=== PATIENT | female | born 1965 | race Caucasian/White ===

== ENCOUNTER → 2017-01-16 | Outpatient (CLI) | payer OTHER | END | disposition home or self-care (01) | LOC: C.PATHSPEC 11:20 | PROVIDERS: ATTEND Dentist Oral and Maxillofacial Surgery | DX: D10.39 Benign neoplasm of other parts of mouth (principal) ==

== ENCOUNTER 2025-03-03 06:35 | Inpatient (IN) ==
--- NOTE | 2025-02-05 11:40 | PAT Medication Instructions ---
Medication Instructions Date of Service February 05, 2025 Home Medications atorvastatin 20 mg tablet 20 mg PO HS cyclobenzaprine 10 mg tablet 10 mg PO TID PRN Muscle Spasm fenofibrate micronized 134 mg capsule 134 mg PO QAM hydrochlorothiazide 25 mg tablet 25 mg PO QAM lisinopril 40 mg tablet 40 mg PO QAM meclizine 25 mg tablet 25 mg PO DAILY PRN Dizziness metformin 500 mg tablet 500 mg PO BID metoprolol succinate 50 mg tablet,extended release 24 hr 50 mg PO HS metronidazole 1 % topical gel (Metrogel) 1 applic topical DAILY naproxen 500 mg tablet 500 mg PO BID PRN Pain cetirizine 10 mg tablet (Zyrtec) 10 mg PO DAILY cholecalciferol (vitamin D3) 125 mcg (5,000 unit) tablet (Vitamin D3) 125 mcg PO DAILY hydralazine 50 mg tablet 50 mg PO BID magnesium 100 mg tablet 100 mg PO QAM Continue as directed meclizine 25 mg tablet 25 mg PO DAILY PRN Dizziness (if needed) ASK your surgeon for instructions naproxen 500 mg tablet 500 mg PO BID PRN Pain STOP taking 48 hours before surgery fenofibrate micronized 134 mg capsule 134 mg PO QAM STOP taking 24 hours before surgery metronidazole 1 % topical gel (Metrogel) 1 applic topical DAILY DO NOT take the morning of surgery hydrochlorothiazide 25 mg tablet 25 mg PO QAM lisinopril 40 mg tablet 40 mg PO QAM cetirizine 10 mg tablet (Zyrtec) 10 mg PO DAILY cholecalciferol (vitamin D3) 125 mcg (5,000 unit) tablet (Vitamin D3) 125 mcg PO DAILY metformin 500 mg tablet 500 mg PO BID magnesium 100 mg tablet 100 mg PO QAM Take morning of surgery With a small sip of water, OTHERWISE NOTHING TO EAT OR DRINK AFTER MIDNIGHT: cyclobenzaprine 10 mg tablet 10 mg PO TID PRN Muscle Spasm (if needed) hydralazine 50 mg tablet 50 mg PO BID Take evening before surgery atorvastatin 20 mg tablet 20 mg PO HS cyclobenzaprine 10 mg tablet 10 mg PO TID PRN Muscle Spasm (if needed) metformin 500 mg tablet 500 mg PO BID metoprolol succinate 50 mg tablet,extended release 24 hr 50 mg PO HS hydralazine 50 mg tablet 50 mg PO BID Other Notes If you have any questions please call us at [phone] or [phone] or [phone] or [phone]
--- NOTE | 2025-02-10 12:51 | Anesthesiology Consultation ---
Date of Service February 10, 2025 Assessment & Plan (1) Encounter for pre-operative examination: - surgeon ordered medical clearance 02/17/25 [facility]: "...lumbar decompression fusion...preoperative workup including blood work demonstrating an A1c of 6.9% Type 2 diabetes well controlled...RCRI: 0 points, class 1 risk. Preoperative blood work reviewed, stable. Preop EKG demonstrating NSR. Endorses > 4 METs...medically optimized to proceed with the planned procedure..." - check BSG am DOS. Chart Review Chart Review: Acceptable Risk for Surgery and Patient seen in Pre Admission Testing Teaching & Discussion Pre-Anesthesia Teaching/Discussion Notes: Instructed NPO after midnight before surgery, except medications with 15 cc of water. Medication instructions provided according to the PAT guidelines. History Surgery Operation Date: 03/03/25 07:45 Proposed Procedures p L2-L4 Decompression and Fusion - David Gibbs, Height/Weight Height: 5 ft 2 in Weight: 113.8 kg Allergies Allergy/AdvReac Type Severity Reaction Status Date / Time latex Allergy Intermediate red, Verified 02/04/25 08:40 burning rash oxycodone [From Percocet] Allergy Intermediate severe Verified 02/04/25 08:40 vomiting Sulfa (Sulfonamide Allergy Intermediate rash/vomiti Verified 02/04/25 08:40 Antibiotics) ng montelukast AdvReac Severe "changed Verified 02/04/25 08:40 my personality" duloxetine AdvReac Unknown Gastrointestinal Verified 02/04/25 08:40 Upset lilacs Allergy Severe Anaphylaxis Uncoded 02/04/25 08:40 Medications Home Medications Medication Instructions Recorded Confirmed Last Taken atorvastatin 20 mg tablet 20 mg PO HS 04/12/20 02/04/25 04/19/20 21:00 cyclobenzaprine 10 mg tablet 10 mg PO TID PRN Muscle Spasm 04/12/20 02/04/25 04/13/20 12:00 fenofibrate micronized 134 mg 134 mg PO QAM 04/12/20 02/04/25 04/19/20 08:00 capsule hydrochlorothiazide 25 mg tablet 25 mg PO QAM 04/12/20 02/04/25 04/19/20 08:00 lisinopril 40 mg tablet 40 mg PO QAM 12/01/20 09/25/25 12/08/20 08:00 meclizine 25 mg tablet 25 mg PO DAILY PRN Dizziness 04/12/20 02/04/25 Unknown metformin 500 mg tablet 500 mg PO BID 04/12/20 02/04/25 04/19/20 21:00 metoprolol succinate 50 mg 50 mg PO HS 04/12/20 02/04/25 04/19/20 21:00 tablet,extended release 24 hr metronidazole 1 % topical gel 1 applic topical DAILY 04/12/20 02/04/25 04/18/20 12:00 (Metrogel) naproxen 500 mg tablet 500 mg PO BID PRN Pain 04/12/20 02/04/25 04/17/20 21:00 cetirizine 10 mg tablet (Zyrtec) 10 mg PO DAILY 02/04/25 02/04/25 Unknown cholecalciferol (vitamin D3) 125 125 mcg PO DAILY 02/04/25 02/04/25 Unknown mcg (5,000 unit) tablet (Vitamin D3) hydralazine 50 mg tablet 50 mg PO BID 02/04/25 02/04/25 Unknown magnesium 100 mg tablet 100 mg PO QAM 02/04/25 02/04/25 Unknown Additional Notes: Patient was instructed to follow surgeon's instructions regarding Vitamin D supplementation. Past Medical History Medical History (Updated 02/10/25 @ 13:10 by Lubna Smith PA-C) Bruxism wears a mouth guard at night Chronic back pain Diabetes mellitus, type 2 History of anemia denies h/o blood transfusion History of COVID-19 spring 2024 - resolved History of diverticulosis History of gastric ulcer teenage years Hyperlipidemia Hypertension Internal hemorrhoids Morbid obesity with BMI of 45.0-49.9, adult Nausea and vomiting after administration of anesthetic agent Rosacea Seasonal allergies Temporomandibular joint disorder denies locking or clicking Patient denies h/o stroke, seizures, heart attack, heart failure, or blood clots/DVTs. Exercise / Class Metabolic Activity III < 4 Walking/Shop/Light housework (denies chest discomfort or shortness of breath with usual activities, avoiding stairs due to back pain) Past Family History Family History Mother Family history of reaction to anesthesia difficulty waking Family hx colonic polyps Sister Family history of reaction to anesthesia "would just be really out there for hours after procedures" Grandmother (Maternal) Family history of diabetes mellitus Uncle Family history of diabetes mellitus Uncle Family history of diabetes mellitus Family/Other Family history of diabetes mellitus cousin Past Surgical History Surgical History (Updated 02/10/25 @ 13:13 by Lubna Smith PA-C) History of cholecystectomy History of dilatation and curettage History of endometrial ablation History of esophagogastroduodenoscopy (EGD) History of hemorrhoidectomy with fistulectomy History of surgery skin lesion removed right hand-precancerous cells History of tonsillectomy and adenoidectomy History of wisdom tooth extraction Hx of LASIK Status post epidural steroid injection Past Anesthesia History No Hx of Anesthesia Complications and Other (mother and sister slow to wake) History of PONV History of PONV and Hx of Motion Sickness Social History Smoking Status: Never smoker Do You Dip or Chew Tobacco: No Hx Alcohol Use: No Hx Substance Use: No substance use type: does not use Review of Systems Snoring, denies witnessed apneas. Patient denies chest pain, shortness of breath, dyspnea on exertion, fever, chills, cough, wheezing, or palpitations. Physical Exam Vital Signs Vitals BP 151/83 P 75 TEMP 98.4 SP02 97% on RA RESP 18 Physical Patient resting comfortably in chair in no acute distress, alert and oriented, responding appropriately throughout visit Full cervical extension range of motion without pain TMD < 3 finger breadths Mallampati Score 3 Dentition: several caps/crowns, denies chipped or loose teeth, implants or bridges Lungs: normal respiratory effort. Good air movement, clear throughout to auscultation, no adventitious breath sounds Cardiac: regular rate and rhythm, no murmurs noted Carotid arteries: negative bruit bilat Lab Results Anesthesia Preop Results Results Anesthesia Widget: WBC 6.92 K/ul (4.8-10.8) 02/10/25 Hgb 11.9 g/dl (12.0-16.0) L 02/10/25 Hct 38.5 % (37.0-47.0) 02/10/25 Plt 321 K/uL (130-400) 02/10/25 Na 141 mmol/L (136-145) 02/10/25 K 4.7 mmol/L (3.5-5.1) 02/10/25 Cl 103 mmol/L (98-107) 02/10/25 CO2 30 mmol/L (21-32) 02/10/25 BUN 26 mg/dl (6-23) H 02/10/25 Creat 1.06 mg/dl (0.6-1.2) 02/10/25 Glucose Level 143 mg/dl (70-99(Fasting)) H 02/10/25 PT 9.9 Seconds (9.0-12.0) 02/10/25 PTT 27 Seconds (21-31) 02/10/25 INR 0.9 (0.9-1.1) 02/10/25 HA1c 6.9 % (4.5-5.6) H 02/10/25 Urine Color Yellow 02/10/25 Urine Appearance Clear (Clear) 02/10/25 Urine pH 6.5 (4.5-7.5) 02/10/25 Urine Specific [place] 1.011 (1.000-1.030) 02/10/25 Urine Protein Negative (Negative) 02/10/25 Urine Glucose (UA) Negative (Negative) 02/10/25 Urine Ketones Negative (Negative) 02/10/25 Urine Blood Negative (Negative) 02/10/25 Urine Nitrite Negative (Negative) 02/10/25 Urine Bilirubin Negative (Negative) 02/10/25 Urine Urobilinogen Negative (Negative) 02/10/25 Urine Leukocyte Esterase Negative (Negative) 02/10/25 Blood Type O Negative 02/10/25 Antibody Screen NEGATIVE 02/10/25 Testing Electrocardiogram Date: 02/10/25 NSR, rate 74 bpm Chest X-Ray Date: 02/10/25 Heart size and pulmonary vasculature are normal. No consolidation or pleural effusion. IMPRESSION: No acute findings. Stress Test Date: 11/09/21 Negative for inducible ischemia No significant valvular disease MPHR 85% Grade I diastolic dysfunction
[2025-03-03] MEDS: VANCOMYCIN HCL 1,750 MG in SODIUM CHLORIDE 0.9% 500 ML IV SCH (06:50)
[2025-03-03] MEDS: LR 15ML/HR IV SCH (06:50)
[2025-03-03] MEDS: LR 60ML/HR IV SCH (07:00)
[2025-03-03] MEDS: GABAPENTIN 600 MG DOSE PO SCH (07:01)
[2025-03-03] MEDS: ACETAMINOPHEN 500 MG TAB PO SCH (07:01)
[2025-03-03] MEDS: CeleBREX 200 MG CAP PO SCH (07:01)
[2025-03-03] MEDS ORDERED: HYDROmorphone INJ 2 MG/ML SYR/VIAL ONE (08:32)
[2025-03-03] MEDS ORDERED: KETAMINE HCL 10MG/ML SYR ONE (08:32)
[2025-03-03] MEDS ORDERED: ONDANSETRON INJ 2 MG/ML 2 ML VIAL ONE ×2 (08:32→11:10)
[2025-03-03] MEDS ORDERED: PROPOFOL IV EMULSION 10 MG/ML 20 ML VIAL IV ONE (08:32)
[2025-03-03] MEDS ORDERED: DEXAMETHASONE SOD INJ 4 MG/ML VIAL ONE (08:32)
[2025-03-03] MEDS ORDERED: ROCURONIUM BROMIDE 10 MG/ML 5 ML VIAL IV ONE (08:32)
[2025-03-03] MEDS ORDERED: MIDAZOLAM HCL 1 MG/ML 2ML VIAL ONE (08:32)
[2025-03-03] MEDS: SCOPOLAMINE 1 MG/72 HR TDSY PATCH TD ONE ×2 (08:45→08:46)
[2025-03-03] MEDS ORDERED: HYDROmorphone INJ 1 MG/ML SYRINGE IV PRN ×2 (08:50→13:13)
[2025-03-03] MEDS ORDERED: ONDANSETRON INJ 2 MG/ML 2 ML VIAL IV PRN ×2 (08:50→13:13)
[2025-03-03] MEDS ORDERED: ATROPINE SULFATE 0.1 MG/ML 10ML SYR IV PRN (08:50)
--- NOTE | 2025-03-03 09:22 | History & Physical Bridge Note ---
Date of Service March 03, 2025 History & Physical Bridge Note I have examined the patient, reviewed the History & Physical and in the interval since the performance of the History & Physical I have noted the following changes of clinical significance: no changes noted
--- NOTE | 2025-03-03 09:23 | History & Physical Report ---
Date of Service March 03, 2025 Assessment & Plan (1) Multilevel lumbosacral spondylosis with radiculopathy: Plan: L2-L4 decompression and fusion History of Present Illness Chief Complaint: Chronic back and leg pain Primary Care Provider: Kareen San MD This is a 59-year-old female presents with chronic back and leg pain after failing course of nonoperative care is here for surgical intervention. Allergies Allergy/AdvReac Type Severity Reaction Status Date / Time latex Allergy Intermediate red, Verified 03/03/25 07:03 burning rash oxycodone [From Percocet] Allergy Intermediate severe Verified 03/03/25 07:03 vomiting Sulfa (Sulfonamide Allergy Intermediate rash/vomiti Verified 03/03/25 07:03 Antibiotics) ng montelukast AdvReac Severe "changed Verified 03/03/25 07:03 my personality" duloxetine AdvReac Unknown Gastrointestinal Verified 03/03/25 07:03 Upset lilacs Allergy Severe Anaphylaxis Uncoded 03/03/25 07:03 Home Medications Medication Instructions Recorded Confirmed Type atorvastatin 20 mg tablet 20 mg PO HS 04/12/20 03/03/25 History cyclobenzaprine 10 mg tablet 10 mg PO TID PRN Muscle Spasm 04/12/20 03/03/25 History fenofibrate micronized 134 mg 134 mg PO QAM 04/12/20 03/03/25 History capsule hydrochlorothiazide 25 mg tablet 25 mg PO QAM 04/12/20 03/03/25 History lisinopril 40 mg tablet 40 mg PO QAM 04/12/20 03/03/25 History meclizine 25 mg tablet 25 mg PO DAILY PRN Dizziness 04/12/20 03/03/25 History metformin 500 mg tablet 500 mg PO BID 04/12/20 03/03/25 History metoprolol succinate 50 mg 50 mg PO HS 04/12/20 03/03/25 History tablet,extended release 24 hr metronidazole 1 % topical gel 1 applic topical DAILY 04/12/20 03/03/25 History (Metrogel) naproxen 500 mg tablet 500 mg PO BID PRN Pain 04/12/20 03/03/25 History cetirizine 10 mg tablet (Zyrtec) 10 mg PO DAILY 02/04/25 03/03/25 History cholecalciferol (vitamin D3) 125 125 mcg PO DAILY 02/04/25 03/03/25 History mcg (5,000 unit) tablet (Vitamin D3) hydralazine 50 mg tablet 50 mg PO BID 02/04/25 03/03/25 History magnesium 100 mg tablet 100 mg PO QAM 02/04/25 03/03/25 History Past Med/Surg History Problem List (Updated 03/03/25 @ 09:23 by David Gibbs DO) Multilevel lumbosacral spondylosis with radiculopathy Dysphagia Encounter for pre-operative examination Medical History (Updated 03/03/25 @ 09:23 by David Gibbs DO) Internal hemorrhoids Rosacea History of diverticulosis Seasonal allergies History of COVID-19 spring 2024 - resolved Morbid obesity with BMI of 45.0-49.9, adult Nausea and vomiting after administration of anesthetic agent Chronic back pain History of gastric ulcer teenage years Diabetes mellitus, type 2 History of anemia denies h/o blood transfusion Bruxism wears a mouth guard at night Temporomandibular joint disorder denies locking or clicking Hyperlipidemia Hypertension Surgical History History of surgery skin lesion removed right hand-precancerous cells History of hemorrhoidectomy with fistulectomy History of esophagogastroduodenoscopy (EGD) History of endometrial ablation History of dilatation and curettage Status post epidural steroid injection History of cholecystectomy History of wisdom tooth extraction History of tonsillectomy and adenoidectomy Hx of LASIK Family History Mother Family history of reaction to anesthesia difficulty waking Family hx colonic polyps Sister Family history of reaction to anesthesia "would just be really out there for hours after procedures" Grandmother (Maternal) Family history of diabetes mellitus Uncle Family history of diabetes mellitus Uncle Family history of diabetes mellitus Family/Other Family history of diabetes mellitus cousin Social History Smoking Status: Never smoker Second Hand Exposure: Yes (parents/both sisters smoked); Do You Dip or Chew Tobacco: No; Tobacco Cessation Education Requested by Patient: No Hx Alcohol Use: No Hx Substance Use: No Preferred Language: Romansh Communication Ability: Effective Probation Manager Required: No Beliefs That Will Affect Care: None Current Living Situation: Spouse Other Information That Helps Us Care for You: No Feels Safe at Home: Yes Safety Concerns: Feels Safe At This Time Assistive Devices: None Physical Exam Physical Exam: Patient is alert and oriented heart regular rhythm Lungs clear Results & Data Results & Data Vital Signs (Past 12 Hours) Vital Signs Temp Pulse Resp BP Pulse Ox O2 Del Method 03/03/25 06:54 36.7 C 74 20 181/93 H 97 Room Air
[2025-03-03] MEDS: BUPIVACAINE/EPINEPHRINE 0.25% 1:200,000 30 ML VIAL ONE (10:40)
[2025-03-03] MEDS: ceFAZolin 330 MG/ML 1 GM VIAL ONE (10:40)
[2025-03-03] MEDS ORDERED: SUGAMMADEX SODIUM 200 MG/2 ML VIAL IV ONE (11:10)
[2025-03-03] MEDS: FLOSEAL HEMOSTATIC MATRIX 10ML TOP ONE (11:24)
--- NOTE | 2025-03-03 11:42 | Operative Report ---
Post Operative Report Pre & Post Diagnosis Operation Date: 03/03/25 09:35 Pre-Op Diagnosis: #1 lumbar spondylosis with radiculopathy #2 lumbar spinal stenosis #3 morbid obesity Post-Op Diagnosis: Same I identified the patient and participated in the time-out.: Yes Procedure Operation Date: 03/03/25 09:35 Actual Procedures #1 lumbar decompression with bilateral medial facetectomies and foraminotomies L2-L3 L3-L4. #2 posterior spinal fusion L2-L3 L3-L4 #3 placed to posterior instrumentation L2-L4 using Buenrostro. #4 interbody fusion L2-L3 L3-L4 #5 christina cement of Spira 13 x 26 mm at L2-L3 and 12 x 26 mm at L3-L4. #6 placement locally harvested morselized autograft and posterior gutters. #7 placement of Proteus combined with Koros bone graft in the posterior lateral gutters and os design interbody space. #8 application of versa wrap of the exposed dura. Surgeon David Gibbs, DO [place] [employer] Yudith Haro Estimated Blood Loss 200 Findings See Below The patient is 5 foot 2 weighing over 113 kg with a BMI in excess of 45. The patient's body habitus did create significant technical difficulty with positioning exposure procedure itself. This did require deep retractors and longer instruments in order to perform this procedure. This had at least 40% increased operative time. I am recommending a modifier 22. Specimens None Indications This is a 59-year-old female presents by much diagnosis after failing course of nonoperative care is here for surgical invention. Description of Procedure Patient was met with identified informed consent obtained. Patient was then taken to the operative suite underwent patient placed in a prone position on the Jeffry table atop the Jeison frame. All bony prominences well-padded eyes inspected to ensure no external pressure placed upon them. This point lumbar spine was prepped and draped in normal sterile fashion. Sharp dissection with the assistance of Bovie cautery from down to and exposing the lamina transverse processes of L2-L3-L4 bilaterally. From a [place] 5 fashion complete laminectomy of L3 and L2 was performed including bilateral medial facetectomies and foraminotomies addressing severe neural compression. Pedicle screws in place at L2-L3-L4 bilaterally with assistance of fluoroscopy and the appropriately sized cristian placed. By way of transforaminal approach on the left complete discectomy of L3-L4 was performed endplates corrected to subcortical bleeding bone and a 12 x 26 mm Spira cage tapped into position. Then proceeded to L2-L3 and again by way of a transforaminal approach on the left a complete discectomy was performed. Endplates guided to subcortical bleeding bone and a 13 x 26 mm Spira cage tapped into position. Please note all cages were packed with os design bone graft. The rods were then compressed locked in the final position bilaterally. The transverse processes of L2-L3-L4 burred to subcortical bleeding bone. Proteus combined with Koros bone graft and local autograft placed in posterolateral gutters. First wrap placed over the exposed dura. 15 round TIFFANIE drain inserted. The incision was then closed with 1 Vicryl fascia 2-0 Vicryl subcutaneously and 4 Monocryl for final skin closure. Steri- Strips sterile dressing placed. Patient waken taken to PACU stable condition. Please note Yudith Haro was present at the entire procedure and all the patient positioning complex portion of the surgery and final skin closure. I attest to the content of the Intraoperative Record and any orders documented therein. Any exceptions are noted below.
--- NOTE | 2025-03-03 12:00 | Fluoroscopy Report ---
INTRAOPERATIVE RADIOGRAPHS CLINICAL HISTORY: Lumbar spinal fusion surgery. Fluoro time: 15 seconds Ka,r: 15.74 mGy FINDINGS: 2 spot fluoroscopic views of the lumbar spine are presented. There has been discectomy at L 2-L3 and L3-L4 with laminectomy and posterior fusion at L2-L4. Interpedicular screws are present at a ll levels. The orthopedic hardware appears intact. IMPRESSION: Intraoperative images from lumbar spinal fusion surgery as above. Electronically signed by: Eugenio Fenton M.D. 03/03/2025 11:57 AM
--- NOTE | 2025-03-03 12:50 | Anesthesiology Progress Note ---
Date of Service March 03, 2025 Anesthesia Post Procedure Vital Signs Vital Signs: Temp Pulse Pulse Resp BP Pulse Ox O2 Del Method 03/03/25 12:45 60 14 139/68 96 Nasal Cannula 03/03/25 12:35 64 12 175/81 H 99 Oxymask 03/03/25 12:25 66 14 165/77 H 93 Oxymask 03/03/25 12:15 67 12 159/75 H 95 Oxymask 03/03/25 12:04 36.2 C L 73 12 148/74 H 95 Oxymask 03/03/25 06:54 36.7 C 74 20 181/93 H 97 Room Air O2 Flow Rate 03/03/25 12:45 3 03/03/25 12:35 4 03/03/25 12:25 4 03/03/25 12:15 7 03/03/25 12:04 15 03/03/25 06:54 Pain Intensity Back: Pain Intensity: 4 Transfer of Care Handoff Completed per policy Notes Mental Status: alert / awake / arousable Patient Amnestic to Procedure: Yes Nausea / Vomiting: adequately controlled Pain: adequately controlled Airway Patency, RR, SpO2: stable & adequate BP & HR: stable & adequate Hydration State: stable & adequate Anesthetic Complications: no major complications apparent and Pt Satisfied with anesthetic care
[2025-03-03] MEDS ORDERED: diphenhydrAMINE Capsule 25 MG CAP PO PRN (13:13)
[2025-03-03] MEDS ORDERED: ACETAMINOPHEN 500 MG TAB PO PRN (13:13)
[2025-03-03] MEDS ORDERED: MECLIZINE HCL 25 MG TAB PO PRN (13:13)
[2025-03-03] MEDS ORDERED: SOD PHOSPHATE/SOD BIPHOSPHATE ENEMA 132 ML BTL PR PRN (13:13)
[2025-03-03] MEDS ORDERED: PHARMACY GLYCEMIC MGMT CONSULT PRN (13:13)
[2025-03-03] MEDS ORDERED: LORazepam Inj 0.5 MG in SYRINGE 0.25 ML IV PRN (13:13)
[2025-03-03] MEDS ORDERED: FAMOTIDINE 20 MG TAB PO PRN (13:13)
[2025-03-03] MEDS ORDERED: ALUMINUM/MAGNESIUM SUSP 30 ML UDC PO PRN (13:13)
[2025-03-03] MEDS ORDERED: NALOXONE HCL 0.4 MG/1 ML VIAL/CARP IV PRN (13:13)
[2025-03-03] MEDS ORDERED: MAGNESIUM HYDROXIDE SUSP 30 ML UDC PO PRN (13:13)
[2025-03-03] MEDS ORDERED: HYDROmorphone INJ 0.5 MG/0.5 ML SYR IV PRN (13:13)
[2025-03-03] MEDS ORDERED: DO NOT ADMINISTER PNEUMOCOCCAL VACCINE PRN (13:13)
[2025-03-03] MEDS ORDERED: CYCLOBENZAPRINE HCL 10 MG TAB PO PRN (13:13)
[2025-03-03] MEDS ORDERED: ACETAMINOPHEN 1,000 MG/100 ML VIAL IV PRN (13:13)
[2025-03-03] MEDS ORDERED: METOCLOPRAMIDE HCL INJ 5 MG/ML 2 ML VIAL IV PRN (13:13)
[2025-03-03] MEDS ORDERED: LORazepam 0.5 MG TAB PO PRN (13:13)
[2025-03-03] MEDS ORDERED: DO NOT ADMINISTER FLU VACCINE PRN (13:13)
[2025-03-03] MEDS: SODIUM CHLORIDE 0.9% 1,000 ML IV SCH (13:34)
[2025-03-03] MEDS: ONDANSETRON 4 MG OD TAB PO PRN (13:39)
--- NOTE | 2025-03-03 13:56 | Consultation ---
Date of Consultation March 03, 2025 Assessment & Plan (1) Multilevel lumbosacral spondylosis with radiculopathy: (2) S/P spinal surgery: Post op day# 0 S/P L2-L4 decompression and fusion by Dr Bernie BALLESTEROS#200ml Pain management per ortho Wound management per ortho PT/OT as appropriate DVT prophylaxis per ortho Incentive spirometry Monitor H&H for acute blood loss anemia; pre-op Hgb: 11.9 (3) Hypertension: Stable Hold lisinopril and HCTZ for now and reassess BP tomorrow Continue metoprolol succinate, hydralazine (4) Hyperlipidemia: Continue atorvastatin, fenofibrate (5) Diabetes mellitus, type 2: A1c: 6.9 on 02/10/25 Hold home metformin Basal bolus insulin per glycemic pharmacist, appreciate glycemic management DVT Prophylaxis SCDs Disposition per primary service Follows with Dr San at [facility] for routine care Pt was seen and care coordinated with Dr Munoz. See addendum Thank you for this consultation. We will follow the patient with you during their hospital stay. You can reach a member of the [facility] Hospitalist Team 03/12 via [facility] Supervising Physician Co-Signing Physician Notes Pt seen and examined by me, care coordinated w/ Alan Parker PA-C, pls refer to her note above for further detail. Patient is 59 yo F with HTN, HLD, DM II, morbid obesity, chronic back pain S/P L2-L4 decompression and fusion today by Dr. Gibbs. Postop reports nausea and had episode of emesis. Pt reports chronic "stomach issues" with nausea and takes Protonix. Has Castro cath in place. Denies fever/chills, diaphoresis, diarrhea, constipation, SWARTZ, dizziness, CP, SOB, palpitations, cough, sore throat, rhinorrhea, abdominal pain, weakness, extremity edema, rashes, urinary symptoms. Currently sitting up in bed resting, awakens easily. Nausea seems to be improving. Lungs CTAB, heart sounds regular. Abdomen soft, obese, nontender. Pt moves LEs. Cont. to closely monitor, will get H&H tmrw AM. MD Alexander History of Present Illness Requesting Physician: Dr Gibbs Reason for Consultation: post op medical management Attending Physician: David Gibbs DO History of Present Illness Patient is 59 year old female with PMH HTN, HLD, DM II, morbid obesity, chronic back pain S/P L2-L4 decompression and fusion today by Dr. Gibbs. Postop reports nausea and had episode emesis. Pt reports chronic "stomach issues" with nausea and takes Protonix for awhile and helps then stops and symptoms return. Currently been taking Protonix daily. Has Castro cath in place. Denies f ever/chills, diaphoresis, diarrhea, constipation, SWARTZ, dizziness, CP, SOB, palpitations, cough, sore throat, rhinorrhea, abdominal pain, weakness, extremity edema, rashes, urinary symptoms. Allergies Allergy/AdvReac Type Severity Reaction Status Date / Time latex Allergy Intermediate red, Verified 03/03/25 07:03 burning rash oxycodone [From Percocet] Allergy Intermediate severe Verified 03/03/25 07:03 vomiting Sulfa (Sulfonamide Allergy Intermediate rash/vomiti Verified 03/03/25 07:03 Antibiotics) ng montelukast AdvReac Severe "changed Verified 03/03/25 07:03 my personality" duloxetine AdvReac Unknown Gastrointestinal Verified 03/03/25 07:03 Upset lilacs Allergy Severe Anaphylaxis Uncoded 03/03/25 07:03 Home Medications Medication Instructions Recorded Confirmed Type atorvastatin 20 mg tablet 20 mg PO HS 04/12/20 03/03/25 History cyclobenzaprine 10 mg tablet 10 mg PO TID PRN Muscle Spasm 04/12/20 03/03/25 History fenofibrate micronized 134 mg 134 mg PO QAM 04/12/20 03/03/25 History capsule hydrochlorothiazide 25 mg tablet 25 mg PO QAM 04/12/20 03/03/25 History lisinopril 40 mg tablet 40 mg PO QAM 04/12/20 03/03/25 History meclizine 25 mg tablet 25 mg PO DAILY PRN Dizziness 04/12/20 03/03/25 History metoprolol succinate 50 mg 50 mg PO HS 04/12/20 03/03/25 History tablet,extended release 24 hr metronidazole 1 % topical gel 1 applic topical DAILY 04/12/20 03/03/25 History (Metrogel) naproxen 500 mg tablet 500 mg PO BID PRN Pain 04/12/20 03/03/25 History cetirizine 10 mg tablet (Zyrtec) 10 mg PO DAILY 02/04/25 03/03/25 History cholecalciferol (vitamin D3) 125 125 mcg PO DAILY 02/04/25 03/03/25 History mcg (5,000 unit) tablet (Vitamin D3) hydralazine 50 mg tablet 50 mg PO BID 02/04/25 03/03/25 History magnesium 100 mg tablet 100 mg PO QAM 02/04/25 03/03/25 History hydrocodone 5 mg-acetaminophen 325 1 tab PO Q6H PRN pain #30 tabs 03/03/25 Rx mg tablet metformin 1,000 mg tablet 1,000 mg PO BID 03/03/25 03/03/25 History pantoprazole 20 mg tablet,delayed 20 mg PO DAILY 03/03/25 03/03/25 History release tramadol 50 mg tablet 50 mg PO Q6H PRN pain, moderate 03/03/25 Rx #30 tabs Patient History Medical History Internal hemorrhoids Rosacea History of diverticulosis Seasonal allergies History of COVID-19 spring 2024 - resolved Morbid obesity with BMI of 45.0-49.9, adult Nausea and vomiting after administration of anesthetic agent Chronic back pain History of gastric ulcer teenage years Diabetes mellitus, type 2 History of anemia denies h/o blood transfusion Bruxism wears a mouth guard at night Temporomandibular joint disorder denies locking or clicking Hyperlipidemia Hypertension Surgical History History of surgery skin lesion removed right hand-precancerous cells History of hemorrhoidectomy with fistulectomy History of esophagogastroduodenoscopy (EGD) History of endometrial ablation History of dilatation and curettage Status post epidural steroid injection History of cholecystectomy History of wisdom tooth extraction History of tonsillectomy and adenoidectomy Hx of LASIK Family History Mother Family history of reaction to anesthesia difficulty waking Family hx colonic polyps Sister Family history of reaction to anesthesia "would just be really out there for hours after procedures" Grandmother (Maternal) Family history of diabetes mellitus Uncle Family history of diabetes mellitus Uncle Family history of diabetes mellitus Family/Other Family history of diabetes mellitus cousin Social History Smoking Status: Never smoker Second Hand Exposure: Yes (parents/both sisters smoked); Do You Dip or Chew Tobacco: No; Tobacco Cessation Education Requested by Patient: No Hx Alcohol Use: No Hx Substance Use: No Preferred Language: Wallisian Communication Ability: Effective 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 Beliefs That Will Affect Care: None Current Living Situation: Spouse Other Information That Helps Us Care for You: No Feels Safe at Home: Yes Safety Concerns: Feels Safe At This Time Assistive Devices: None Review of Systems Review of Systems: All systems reviewed & are unremarkable except as noted in HPI & below Physical Exam Physical Exam: General: no distress, obese female Head: normocephalic, atraumatic Eyes: conjunctiva non-injected, anicteric ENT: normal inspection external ears, nose, mucous membranes moist Neck: supple, trachea midline Lungs: clear, no respiratory distress, no wheezing/rhonchi/rales CV: RRR, no murmur, no pretibial edema Abd: normal BS, soft, non-tender Back: surgical dressing in place, TIFFANIE drain with serosanguineous drainage Ext: no cyanosis, no calf tenderness Neuro: A&O x 3, no focal deficits noted, normal affect Skin: warm, dry Results & Data Vital Signs (Past 12 Hours) Vital Signs Temp Pulse Pulse Resp BP Pulse Ox O2 Del Method 03/03/25 13:42 36.3 C L 69 16 137/78 93 Nasal Cannula 03/03/25 13:15 36.5 C 70 16 142/82 H 95 Nasal Cannula 03/03/25 12:55 63 12 134/71 95 Nasal Cannula 03/03/25 12:45 60 14 139/68 96 Nasal Cannula 03/03/25 12:35 64 12 175/81 H 99 Oxymask 03/03/25 12:25 66 14 165/77 H 93 Oxymask 03/03/25 12:15 67 12 159/75 H 95 Oxymask 03/03/25 12:04 36.2 C L 73 12 148/74 H 95 Oxymask 03/03/25 06:54 36.7 C 74 20 181/93 H 97 Room Air O2 Flow Rate 03/03/25 13:42 2 03/03/25 13:15 2 03/03/25 12:55 3 03/03/25 12:45 3 03/03/25 12:35 4 03/03/25 12:25 4 03/03/25 12:15 7 03/03/25 12:04 15 03/03/25 06:54
--- NOTE | 2025-03-03 14:11 | Pharmacy Report ---
Pharmacy Glycemic Short Note 2 - Date of Service March 03, 2025 - Glycemic Short BSG Results (Last 24 hours): 03/03/25 03/03/25 03/03/25 06:46 12:29 13:46 POC Glucose 182 H 192 H 243 H OUTPATIENT ANTIDIABETIC REGIMEN: * Metformin 500mg PO BID * A1c 6.9% 02/10/25 ASSESSMENT: * 59 YO F, s/p spinal surgery with Dr Gibbs, Type 2 DM, received 4mg IV Dexamethasone pre-op, and scheduled for 6mg IV daily x 3 days. * Pt is maintained on oral antidiabetic agents as an outpatient * Oral agents are not recommended for inpatient use d/t drug interactions, changing PO intake, and difficulty titrating for acute hyper/hypoglycemia. * Will hold oral agents for admission and utilize SQ basal bolus insulin regimen which is the recommended regimen for inpatient glycemic control. * Will initiate weight based insulin dosing for insulin reggie patient and titrate based on BSG trends. PLAN FOR INPATIENT GLYCEMIC CONTROL: * Hold outpatient oral diabetes medications * Basal insulin * Lantus 25 units SQ x 1 dose now then HS (0 units BSG < 160, 15 units BSG 160-200, 25 units BSG > 200) * Bolus insulin * NovoLog per scale ACHS or Q6hrs while NPO * Goal Range: Low 110 mg/dL - High 140 mg/dL * Correction Factor: 15 mg/dL/unit * Nutritional / Prandial insulin per carb ratio of 1 unit per 6 grams CHO consumed
[2025-03-03] MEDS ORDERED: GLUCAGON FOR INJ 1 MG VIAL SQ PRN (14:15)
[2025-03-03] MEDS ORDERED: GLUCOSE 40% GEL 15 GM TUBE PO PRN (14:15)
[2025-03-03] MEDS ORDERED: CARBOHYDRATES FOR HYPOGLYCEMIA PO PRN (14:15)
[2025-03-03] MEDS ORDERED: DEXTROSE 50% 50 ML SYRINGE IV PRN (14:15)
[2025-03-03] MEDS ORDERED: GLUCOSE 10 TAB/TUBE PO PRN (14:15)
[2025-03-03] MEDS: INSULIN ASPART PER UNIT CHARGE SC SCH (14:23)
[2025-03-03] MEDS: LANTUS PER UNIT CHARGE SC ONE (14:23)
[2025-03-03] MEDS: PROMETHAZINE 12.5 MG/50.5 ML BAG IV PRN (15:02)
[2025-03-03] MEDS: CHECK SCOPOLAMINE PATCH PLACEMENT SCH (15:16)
[2025-03-03] MEDS: ATORVASTATIN 20 MG TAB PO SCH (20:45)
[2025-03-03] MEDS: METOPROLOL SUCC 50MG EXT REL TAB PO SCH (20:45)
[2025-03-03] MEDS: DOCUSATE SODIUM/SENNA 50/8.6MG TAB PO SCH (20:45)
[2025-03-03] MEDS: LANTUS PER UNIT CHARGE SC SCH (20:46)
[2025-03-04] MEDS: POLYETHYLENE (MIRALAX) 17 GM PACK PO SCH (06:10)
[2025-03-04 07:46] LABS: Hematocrit (blood only) 28.8 % (37.0-47.0); Hemoglobin 9.3 g/dl (12.0-16.0); Immature Granulocytes # (auto) 0.05 K/uL (0.01-0.20); Immature Granulocytes % (auto) 0.5 %; Mean Corpuscular Hemoglobin 27.4 pg (25.0-34.0); Mean Corpuscular Volume 85.0 fL (80.0-100.0); Platelet Count 232 K/uL (130-400); RDW Standard Deviation 42.4 fL (36.4-46.3); Red Blood Count 3.39 M/uL (4.20-5.40); White Blood Count 10.61 K/ul (4.8-10.8)
[2025-03-04] MEDS: dexAMETHasone 6 MG in SYRINGE 0 ML IV SCH (07:48)
[2025-03-04 08:03] LABS: Anion Gap 6.0 (3-11); Blood Urea Nitrogen 18.0 mg/dl (6-23); Calcium 8.8 mg/dl (8.6-10.3); Carbon Dioxide 26.0 mmol/L (21-32); Chloride 112.0 mmol/L (98-107); Creatinine Clr Calc Pharmacy 82.9 ml/min; Glucose 121.0 mg/dl (70-99(Fasting)); Potassium 4.2 mmol/L (3.5-5.1); Sodium 144.0 mmol/L (136-145)
[2025-03-04] MEDS: CETIRIZINE HCL 10 MG TABLET PO SCH (09:21)
[2025-03-04] MEDS: CHOLECALCIFEROL 125 MCG (5,000 UNITS) TAB PO SCH (09:21)
[2025-03-04] MEDS: MAGNESIUM OXIDE 400 MG TAB PO SCH (09:22)
[2025-03-04] MEDS: LANTUS PER UNIT CHARGE SC SCH (09:29)
--- NOTE | 2025-03-04 09:58 | Orthopedic Progress Note ---
Date of Service March 04, 2025 Assessment & Plan (1) Multilevel lumbosacral spondylosis with radiculopathy: Plan: At this time continue physical therapy monitor her TIFFANIE operatively discharge home in the next few days. Admission and Anticipated Discharge Date Admission Date: March 03, 2025 Subjective Patient's back pain is controlled leg symptoms improved Physical Exam Physical Exam: Patient is in the chair at the bedside. She is comfortable. Good strength testing. Results & Data Vital Signs (Past 12 Hours) Vital Signs Temp Pulse Pulse Resp BP BP Pulse Ox 03/04/25 07:41 36.4 C L 73 18 135/79 94 03/04/25 02:54 36.4 C L 66 16 142/86 H 91 03/03/25 23:38 36.4 C L 70 16 138/82 93 O2 Del Method 03/04/25 07:41 Room Air 03/04/25 02:54 Room Air 03/03/25 23:38 Room Air Queries Orthopedic Spine Obesity: Yes
[2025-03-04] MEDS ORDERED: POLYETHYLENE (MIRALAX) 17 GM PACK PO PRN (10:16)
--- NOTE | 2025-03-04 10:48 | Hospitalist Progress Note ---
Date of Service March 04, 2025 Assessment & Plan (1) Multilevel lumbosacral spondylosis with radiculopathy: (2) S/P spinal surgery: Plan: Post op day # 1 S/P L2-L4 decompression and fusion by Dr Gibbs on 03/03/25 EBL#200ml Pain management per ortho Wound management per ortho PT/OT as appropriate DVT prophylaxis per ortho Incentive spirometry Monitor H&H for acute blood loss anemia; pre-op Hgb: 11.9, Hgb is 9.3 on recheck, asymptomatic on review. BP 143/80, HR 73. - TIFFANIE drain with 95mL outs since midnight, appears to be slowing down. Likely to remain in place until tomorrow (3) Hypertension: Plan: Resume lisinopril and HCTZ tomorrow, BP is 143/80, acute blood loss with hgb drop 2 g, monitor BP Continue metoprolol succinate, hydralazine (4) Hyperlipidemia: Plan: Continue atorvastatin, fenofibrate (5) Diabetes mellitus, type 2: Plan: A1c: 6.9 on 02/10/25 Hold home metformin Basal bolus insulin per glycemic pharmacist, appreciate glycemic management DVT Prophylaxis: SCDs Lines: PIV x 1, TIFFANIE drain Disposition per primary service Follows with Dr San at [facility] for routine care Thank you for this consultation. We will follow along on the care of Mrs. Whitt. You can reach a member of the [place] Hospitalist Team 03/12 via [employer] Admission and Anticipated Discharge Date Admission Date: March 03, 2025 Supervising Physician Co-Signing Physician Notes Patient seen and examined Agree with findings and plan as detailed by Patria Sweeney PA-C Subjective Patient is doing well this morning. She denies any acute complaints. Notes that her Castro catheter is irritating. patient states that she at baseline has IBS/diarrhea, and would prefer to not take significant amounts of stool softener/laxative/MiraLAX. She did take Senokot last evening. Will adjust MiraLAX tto q6H to Q6H PRN and encouraged her to take it 1 time today since no bowel movement yet. She has ambulated 2 times about the epps this morning without significant difficulty, is using a walker. PT states that she will li vikas be able to ambulate without walker assistance tomorrow. Her is at bedside. All questions and concerns were addressed with them. 10 point ROS reviewed and otherwise negative. Physical Exam Physical Exam: General: awake, alert, no apparent distress, Obese white female Head: Normocephalic, atraumatic ENT: PERRL, EOMI, no pharyngeal exudate, mucous membranes moist Chest: Clear to auscultation, on room air, no adventitious breath sounds Cardiac: Regular rate and rhythm, no murmur, no JVD, normal peripheral pulses, good capillary refill Back: Dressing C/D/I, small amount of bloody drainage seen on dressing. No surrounding erythema. TIFFANIE drain with serosanguineous outs Abdominal: NABS x 4 quadrants, soft, nondistended, nontender to palpation, no rebound or guarding Extremities: Normal inspection, no peripheral edema or erythema, calfs nontender to palpation Psych: Normal mood and affect Neuro: AAO x 3, strength intact bilaterally and rated 5/5, no motor deficits, speech is clear, no peripheral sensory deficits Results & Data Results & Data Vital Signs (Past 12 Hours) Vital Signs Temp Pulse Pulse Resp BP BP Pulse Ox 03/04/25 07:41 36.4 C L 73 18 135/79 94 03/04/25 02:54 36.4 C L 66 16 142/86 H 91 03/03/25 23:38 36.4 C L 70 16 138/82 93 O2 Del Method 03/04/25 07:41 Room Air 03/04/25 02:54 Room Air 03/03/25 23:38 Room Air
[2025-03-04] MEDS: HYDROCODONE/ACETAMOPHEN 5/325MG TAB PO PRN (20:20)
--- NOTE | 2025-03-05 08:20 | Pharmacy Report ---
Pharmacy Glycemic Short Note 2 - Date of Service March 05, 2025 - Glycemic Short BSG Results (Last 24 hours): 03/04/25 03/04/25 03/04/25 11:31 16:27 20:24 POC Glucose 218 H 169 H 114 H 03/05/25 07:35 POC Glucose 116 H OUTPATIENT ANTIDIABETIC REGIMEN: * Metformin 500mg PO BID * A1c 6.9% 02/10/25 ASSESSMENT: 03/05/25: * Blood sugars mostly well-controlled yesterday w/ one elevated blood sugar at lunch (218 mg/dL) * Fasting blood sugar of 116 mg/dL this morning * Received 73 units of insulin yesterday (35 units of basal and 38 units of bolus) * Correction factor was tightened yesterday * Remains on dexamethasone 6 mg IV daily (2/3) * Overall blood sugar trend is down today, will make changes accordingly 03/03/25: * 59 YO F, s/p spinal surgery with Dr Gibbs, Type 2 DM, received 4mg IV Dexame thasone pre-op, and scheduled for 6mg IV daily x 3 days. * Pt is maintained on oral antidiabetic agents as an outpatient * Oral agents are not recommended for inpatient use d/t drug interactions, changing PO intake, and difficulty titrating for acute hyper/hypoglycemia. * Will hold oral agents for admission and utilize SQ basal bolus insulin regimen which is the recommended regimen for inpatient glycemic control. * Will initiate weight based insulin dosing for insulin reggie patient and titrate based on BSG trends. PLAN FOR INPATIENT GLYCEMIC CONTROL: * Hold outpatient oral diabetes medications * Basal insulin * Lantus 35 unit SC daily * Bolus insulin * NovoLog per scale ACHS or Q6hrs while NPO * Goal Range: Low 110 mg/dL - High 140 mg/dL * Correction Factor: 15 mg/dL/unit * Nutritional / Prandial insulin per carb ratio of 1 unit per 5 grams CHO consumed
--- NOTE | 2025-03-05 09:41 | Orthopedic Progress Note ---
Date of Service March 05, 2025 Assessment & Plan (1) Multilevel lumbosacral spondylosis with radiculopathy: Plan: At this time we will continue physical therapy monitor TIFFANIE output anticipate discharge home tomorrow. Admission and Anticipated Discharge Date Admission Date: March 03, 2025 Subjective Patient struggling with back pain. Leg symptoms improved. Doing well with physical therapy. Physical Exam Physical Exam: Patient is up and ambulating the halls. She is using a walker. Strength is intact. Results & Data Vital Signs (Past 12 Hours) Vital Signs Temp Pulse Pulse Resp BP BP Pulse Ox 03/05/25 08:42 72 144/81 H 03/05/25 07:30 36.7 C 107 H 18 117/68 99 03/05/25 00:07 36.8 C 76 17 145/61 H 95 O2 Del Method 03/05/25 08:42 03/05/25 07:30 Room Air 03/05/25 00:07 Room Air Queries Orthopedic Spine Obesity: Yes
[2025-03-05 10:41] LABS: Hematocrit (blood only) 30.6 % (37.0-47.0); Hemoglobin 9.8 g/dl (12.0-16.0); Mean Corpuscular Hemoglobin 27.1 pg (25.0-34.0); Mean Corpuscular Volume 84.8 fL (80.0-100.0); Platelet Count 292 K/uL (130-400); RDW Standard Deviation 43.8 fL (36.4-46.3); Red Blood Count 3.61 M/uL (4.20-5.40); White Blood Count 10.90 K/ul (4.8-10.8)
--- NOTE | 2025-03-05 12:36 | Hospitalist Progress Note ---
Date of Service March 05, 2025 Assessment & Plan (1) Multilevel lumbosacral spondylosis with radiculopathy: (2) S/P spinal surgery: Plan: Post op day # 2 S/P L2-L4 decompression and fusion by Dr Gibbs on 03/03/25 EBL#200ml Pain management per ortho Wound management per ortho PT/OT as appropriate DVT prophylaxis per ortho Incentive spirometry - pre-op Hgb: 11.9, acute blood loss with hgb drop 2 g, hgc is trending back up, today is 9.8. asymptomatic on review. BP 144/81, HR 72. - TIFFANIE drain with ~65mL outs since midnight, slowing down. Likely to remain in place until tomorrow. Ortho spine anticipates dc tomorrow (3) Hypertension: Plan: Resumed lisinopril this morning, BP is 144/81, fluctuates likely with pain , will add HCTZ back on today as well, first dose now then resume with Am dosing tomorrow. Continue metoprolol succinate, hydralazine (4) Hyperlipidemia: Plan: Continue atorvastatin, fenofibrate (5) Diabetes mellitus, type 2: Plan: A1c: 6.9 on 02/10/25 Hold home metformin Basal bolus insulin per glycemic pharmacist, appreciate glycemic management DVT Prophylaxis: SCDs Lines: PIV x 1, TIFFANIE drain Disposition per primary service Follows with Dr San at [facility] for routine care Thank you for this consultation. We will follow along on the care of Mrs. Whitt. You can [facility] via [employer] Admission and Anticipated Discharge Date Admission Date: March 03, 2025 Subjective Patient reports having increased pain today. She has taken hydrocodone, feels that it does take the edge off but is significantly feeling pain in her lower back especially with ambulating, getting out of bed, walking today. is complaining having some soreness behind her ankles bilaterally, LE stockings are scratched around this area improved pain relief with straightening her teds out. Denies any other acute complaints. Is moving her bowels, tolerating p.o. intake. no fever sweats or chills. He moved her bowels once yesterday. Feels like she needs to go again today. No diarrhea. TIFFANIE drain outs are slowing down. Ortho spine anticipates dc tomorrow. Review of Systems Review of Systems: 10 point ROS reviewed and otherwise negative Physical Exam Physical Exam: General: awake, alert, no apparent distress, Obese white female Head: Normocephalic, atraumatic ENT: PERRL, EOMI, no pharyngeal exudate, mucous membranes moist Chest: Clear to auscultation, on room air, no adventitious breath sounds Cardiac: Regular rate and rhythm, no murmur, no JVD, normal peripheral pulses, good capillary refill Back: Dressing C/D/I, small amount of bloody drainage seen on dressing. No surrounding erythema. TIFFANIE drain with serosanguineous outs Abdominal: NABS x 4 quadrants, soft, nondistended, nontender to palpation, no rebound or guarding Extremities: Normal inspection, no peripheral edema or erythema, calfs nontender to palpation, no skin breakdown or blistering on posterior ankles BLE. Psych: Normal mood and affect Neuro: AAO x 3, strength intact bilaterally and rated 5/5, no motor deficits, speech is clear, no peripheral sensory deficits Results & Data Results & Data Vital Signs (Past 12 Hours) Vital Signs Temp Pulse Resp BP BP Pulse Ox O2 Del Method 03/05/25 08:42 72 144/81 H 03/05/25 07:30 36.7 C 107 H 18 117/68 99 Room Air
[2025-03-05] MEDS: Nursing to Pharmacy Communication SCH (12:54)
[2025-03-05] MEDS: hydroCHLOROthiazide 25 MG TAB PO ONE (13:25)
[2025-03-05 14:46] VITALS: O2SAT 95
[2025-03-06] MEDS: REMOVE TRANSDERM-SCOP PATCH ONE (02:10)
[2025-03-06 07:49] VITALS: BP 151/82; RESP 17; TEMP 97.9
[2025-03-06] MEDS: hydroCHLOROthiazide 25 MG TAB PO SCH (09:40)
--- NOTE | 2025-03-06 09:44 | Discharge Summary ---
Date of Service March 06, 2025 Admission HPI Per Admitting Provider This is a 59-year-old female presents with chronic back and leg pain after failing course of nonoperative care is here for surgical intervention. Principal Diagnosis Lumbar spondylosis with radiculopathy Discharge Data Allergies Allergy/AdvReac Type Severity Reaction Status Date / Time latex Allergy Intermediate red, Verified 03/03/25 07:03 burning rash oxycodone [From Percocet] Allergy Intermediate severe Verified 03/03/25 07:03 vomiting Sulfa (Sulfonamide Allergy Intermediate rash/vomiti Verified 03/03/25 07:03 Antibiotics) ng montelukast AdvReac Severe "changed Verified 03/03/25 07:03 my personality" duloxetine AdvReac Unknown Gastrointestinal Verified 03/03/25 07:03 Upset lilacs Allergy Severe Anaphylaxis Uncoded 03/03/25 07:03 Consultations 03/03/25 13:13 Consult Hospitalist Routine Procedures Performed Operation Date: 03/03/25 09:35 Actual Procedures p L2-L4 Decompression and Fusion(Not Applicable) - David Gibbs DO Ordered Studies 03/03/25 09:35 FL lumbar spine 2-3V Routine Hospital Course (1) Multilevel lumbosacral spondylosis with radiculopathy: Patient went lumbar decompression fusion trial as well as taken orthopedic for postoperatively. Postop patient progressed appropriately. Pain controlled. Excellent strength testing. TIFFANIE drain decreasing appropriately. Subsidy discharged home. Discharge orders instructions from the chart for further review. Total Time Total Time Spent Total Time Spent (In Minutes): 20 minutes Discharge Plan Discharge Items Patient Disposition: Home - Self-Care Reason For Visit: Two Level Lumbosacral Spondylosis with Radiculopat Discharge Diagnosis: Lumbar spondylosis with radiculopathy Activity: As commented below Non-emergency contact: Primary Care Provider Call non-emergency contact if: you have any medication questions Follow-up/Referrals: Kareen San MD [Primary Care Provider] - Diet: Regular Addtl Attending Provider Instructions: ACTIVITY RECOMMENDATIONS: SELF CARE INSTRUCTIONS AFTER THORACIC/LUMBAR FUSIONS 1. You may walk to your tolerance. It is good exercise for your legs and back. Expect some back and intermittent leg aches and pains. 2. You may perform "counter-top" level activities (make a sandwich, surinder with a project, etc.). 3. No bending or lifting of more than 10 pounds or back twisting of any nature (roll like a log when turning in bed). 4. You may ride in a car for 20-30 minutes at a time. No driving until after your first visit with your doctor. 5. Frequent changes of position and restricting sitting to 30 minutes at a time will help limit the amount of back spasms and stiffness you may experience. 6. You may discontinue the use of ambulatory aids (cane, crutches, etc.) once your strength and confidence allow. 7. You may food stand manager the shower and let water strike your incision when you arrive home at least once daily. Do not take a tub bath, sit in a hot tub or go into a swimming pool until after your first recheck in the office. 8. You may resume previous diet. SPECIAL CARE INSTRUCTIONS: VERY IMPORTANT TO READ AND REVIEW A. Your surgical incision has been closed with a cosmetic suture under the skin that will dissolve in about 6 weeks. In 14 days, you can use a pair of clean scissors and cut the suture that is left outside of the skin at the ends of your incision. 1. The small skin tapes can be removed 7 days after surgery if they have not fallen off by that point. 2. You may keep the wound open to air as much as possible to promote healing after post-op day number 5 unless told otherwise by your doctor. 3. If you think the wound looks like it is becoming infected (redness or worsening drainage) and/or you are experiencing fever, chill or worsening back pain and muscle spasms, contact the office so that we may evaluate you as soon as possible. B. Complications are uncommon, but please contact us if you have any signs or symptoms of: 1. wound infection (fever higher than 102.5 degrees F, redness, separation of wound, drainage, or increasing pain from the incision) 2. blood clots in legs (pain, swelling, redness and warmth in legs) 3. urinary tract infection (fever higher than 102.5 degrees F, burning upon urination or increased frequency of urination) 4. nerve problems (inability to walk on your toes or heels, numbness, loss of bowel or bladder control) 5. any other symptoms that concern you C. Please call the office at if you have any concerns or questions about your operation or recovery. D. No smoking! Smoking drastically decreases the chance of a solid fusion. E. Do not take any anti-inflammatory medications (Indocin, Advil, Motrin, Aspirin, Naprosyn, etc.) as these may inhibit the chance of a solid fusion. Tylenol is okay to take for pain. MANAGING PAIN AFTER SPINAL SURGERY 1. Narcotic medication is intended for short-term use and will be provided for surgical pain. Surgical pain usually lasts for a period of 4-6 weeks. Narcotic medication includes Percocet, Vicodin, Darvocet, Tylenol #3 or Lortab. 2. Longer-term pain is more appropriately treated with non-narcotic medication such as Tylenol ES. 3. Muscle spasm is not appropriately treated with narcotics. Muscle relaxers such as Soma, Flexeril or Skelaxin can be used along with Tylenol ES. 4. Remember that we all live with some "aches and pains". This is not unusual or uncommon after an injury or as we get older. a. Back pain is expected and may include muscle spasms for 4 to 6 weeks after surgery. The pain should gradually improve. If the pain worsens for no apparent reason, please contact the office. b. Intermittent leg pain may also be experienced and should not be concerned about unless it worsens for no apparent reason. If so, please contact the office. 5. We will provide appropriate medication within the normal guidelines of their prescribed use. We will also be very cautious and aware of potential abuse and extended duration of patients' medication needs. a. Pain medications are for your comfort and to assist with sleep and rest so that the tissue can heal. They are not provided in order to return to normal activity and should not be used through the day. To do so or worsening pain at night can result from ongoing tissue damage and development of tolerance to the prescribed medicine. 6. Please allow 2-3 days to process refills. Prescriptions will not be mailed but must be picked up at the office. FOLLOW UP VISIT: Keep your scheduled follow-up appointment. Any questions, please call the office at . Pending Studies at Discharge: No Stand-Alone Forms: [employer], Smoking Cessation Medications and GA Order Prescriptions: New hydrocodone-acetaminophen 5-325 mg tablet 1 tab PO Q6H PRN (Reason: pain) Qty: 30 0RF Rx Instructions: Hydrocodone for severe pain tramadol for moderate pain tramadol 50 mg tablet 50 mg PO Q6H PRN (Reason: pain, moderate) Qty: 30 0RF Continued cyclobenzaprine 10 mg Tablet 10 mg PO TID PRN (Reason: Muscle Spasm) atorvastatin 20 mg Tablet 20 mg PO HS metoprolol succinate 50 mg Tablet Extended Release 24 Hr 50 mg PO HS fenofibrate micronized 134 mg Capsule 134 mg PO QAM meclizine 25 mg Tablet 25 mg PO DAILY PRN (Reason: Dizziness) hydrochlorothiazide 25 mg Tablet 25 mg PO QAM lisinopril 40 mg Tablet 40 mg PO QAM naproxen 500 mg Tablet 500 mg PO BID PRN (Reason: Pain) metronidazole [Metrogel] 1 % Gel 1 applic TOPICAL DAILY cetirizine [Zyrtec] 10 mg Tablet 10 mg PO DAILY magnesium 100 mg Tablet 100 mg PO QAM hydralazine 50 mg Tablet 50 mg PO BID cholecalciferol (vitamin D3) [Vitamin D3] 125 mcg (5,000 unit) Tablet 125 mcg PO DAILY metformin 1,000 mg tablet 1,000 mg PO BID pantoprazole 20 mg tablet,delayed release (DR/EC) 20 mg PO DAILY Discharge Orders: Discharge Order (Routine); Ordered 03/06/25 Ordered By: David Gibbs Admission Data Admit Date/Time: 03/03/25 11:47 Attending Provider: David Gibbs Admit Provider: David Gibbs Primary Care Provider: Kareen San Other Providers: Aditi Granados
[2025-03-06] MEDS: LANTUS PER UNIT CHARGE SC SCH (09:49)
[2025-03-06 12:30] VITALS: PULSE 76
--- NOTE | 2025-03-06 16:03 | Hospitalist Progress Note ---
Date of Service March 06, 2025 Assessment & Plan (1) Multilevel lumbosacral spondylosis with radiculopathy: (2) S/P spinal surgery: (3) Acute blood loss anemia: Plan: Postop day #3 s/p L2-L4 decompression and fusion by Dr Gibbs on 03/03/25 EBL#200ml Pain management per ortho Wound management per ortho PT/OT as appropriate DVT prophylaxis per ortho Incentive spirometry ABLA ISO expected surgical losses with likely dilutional component contributing as well, no indication to transfuse (4) Hypertension: Plan: BP improved, continue home antiHTN regimen (5) Hyperlipidemia: Plan: Continue atorvastatin, fenofibrate (6) Diabetes mellitus, type 2: Plan: A1c: 6.9 on 02/10/25 Resume home antidiabetic regimen on discharge Follows with Dr San at [facility] for routine care. We will follow along on the care of Mrs. Whitt while she is admitted. You can reach a [facility] via [employer] Patient seen in collaboration with Dr. Moy. Please see addendum. I spent a total of 30 minutes coordinating, documenting, and providing care for this patient excluding time spent in the performance of separately billed services or time spent by another provider/QHP. This included personally reviewing all current laboratories and imaging studies, medical reconciliation, outpatient chart review and discussion with specialists. This chart was completed in part utilizing Speech Voice Recognition Software. Grammatical errors, random word insertions, pronoun errors, and incomplete sentences are an occasional consequence of this system due to software limitations, ambient noise, and hardware issues. Any formal questions or concerns about the content, text, or information contained within the body of this dictation should be directly addressed to the provider for clarification. Admission and Anticipated Discharge Date Admission Date: March 03, 2025 Supervising Physician Co-Signing Physician Notes Agree with findings as detailed by Steffanie Rodriguez PA-C Subjective Patient seen and examined in room N382-2. Feeling well this morning, pain controlled. Tolerating diet without issue. Plan for DC home today per her discussion with Dr. Gibbs. Review of Systems Review of Systems: At least ten systems reviewed and negative, except as noted in the subjective section. Physical Exam Physical Exam: General: awake, alert, no apparent distress, obese white female Head: Normocephalic, atraumatic ENT: PERRL, EOMI, no pharyngeal exudate, mucous membranes moist Chest: Clear to auscultation, on room air, no adventitious breath sounds Cardiac: Regular rate and rhythm, no murmur, no JVD, normal peripheral pulses, good capillary refill Back: Dressing C/D/I, no surrounding erythema, TIFFANIE drain with minimal serosanguineous output Abdominal: NABS x 4 quadrants, soft, nondistended, nontender to palpation, no rebound or guarding Extremities: Normal inspection, no peripheral edema or erythema, calfs nontender to palpation, no skin breakdown or blistering on posterior ankles BLE. Psych: Normal mood and affect Neuro: AAO x 3, strength intact bilaterally and rated 5/5, no motor deficits, speech is clear, no peripheral sensory deficits Results & Data Results & Data Vital Signs (Past 12 Hours) Vital Signs Temp Pulse Pulse Resp BP BP Pulse Ox 03/06/25 12:28 36.6 C 56 L 76 17 151/82 H 127/77 95 03/06/25 07:48 36.6 C 56 L 17 151/82 H 95 O2 Del Method 03/06/25 12:28 03/06/25 07:48 Room Air
== END 2025-03-06 13:47 | disposition home or self-care (01) | DRG 427 ==
LOC: ASU 06:35 → 3N 11:47

== ENCOUNTER 2025-03-07 17:35 | Inpatient (IN) ==
--- NOTE | 2025-03-07 18:05 | Emergency Department Note ---
Impression & Plan Back pain, S/P spinal surgery, Anemia ED Provider Note NAME: CARINA GARCIA AGE: 59 SEX: F : 1965 ARRIVES VIA: Ambulance INFORMANT: Patient ED PROVIDER(S): Giorgio Lee DO CHIEF COMPLAINT: abdominal pain HPI: Patient is a 59-year-old female who presents to the ER for severe back pain. Patient notes that she had surgery by Dr. Gibbs on Saturday and was discharged yesterday. Since being home she is having severe pain and cannot get around. She been taking her hydrocodone, Flexeril and Ultram. She notes that has severe pain in that left lower back rating down the left leg. She notes that she is having trouble lifting her left leg due to severe pain. ADDITIONAL HISTORY OBTAINED: Per HPI Chronic Medical/Social Conditions Affecting Care: Per HPI PAST MEDICAL HISTORY:See Below PAST SURGICAL HISTORY:See Below FAMILY HISTORY:See Below SOCIAL HISTORY:See Below HOME MEDICATIONS:See Below ALLERGIES:See Below VITALS:See Below PHYSICAL EXAMINATION: GENERAL: Sitting up in bed, in severe pain and tearful EYE EXAM: normal conjunctiva. PERRL and EOM's grossly intact. OROPHARYNX: no exudate, no erythema, lips, buccal mucosa, and tongue normal and mucous membranes are moist NECK: supple, no nuchal rigidity, no adenopathy, non-tender LUNGS: Clear to auscultation. Normal chest wall mechanics HEART: no murmurs, S1 normal and S2 normal ABDOMEN: abdomen soft, non-tender, normo-active bowel sounds, no masses, no rebound or guarding. BACK: Back is symmetrical on inspection and there is no deformity, dressing is in place without any active bleeding. Significant pain on palpation of the left lateral back. SKIN: no rashes and no bruising UPPER EXTREMITIES: upper extremities are grossly normal. LOWER EXTREMITIES: Flexion extension of bilateral hips knees and ankles is intact. Plantar dorsiflexion intact. Left leg is weaker than right and able to just barely lift heel off the bed against gravity. Question if this secondary to pain or true weakness. NEURO EXAM: Normal sensorium, cranial nerves II-XII grossly intact, normal speech, no gross weakness of arms, no gross weakness of legs. MEDICAL DECISION MAKING: Patient is a 59-year-old female who presents ER for severe back pain. She notes she cannot even sit on the left side. Pain goes down into the leg. IV was established and blood work was obtained. Labs showed no significant leukocytosis. Mild anemia at 9.6. BMP with LFTs bilirubin was unremarkable. Patient was given multiple dose of IV morphine, Zofran and Decadron. Discussed the case with his surgeon. Movement of the left lower extremity improved with the pain meds. I do favor that this likely pain related but will defer to them for additional imaging. Please see Dr. Gibbs's note for further management. No numbness in groin. She able to urinate and move her bowels. Consults/Care Managements Discussions: Per MDM Triage Nursing notes reviewed. Limited review of prior medical records performed Vital Signs: reviewed and remarkable for htn Differential diagnosis: Differential diagnoses includes but is not limited to lumbar radiculopathy, kidney stone, muscle strain, facture, cauda equina, mass, and disc herniation. ER treatment provided: See below Diagnostics interpreted by me include EKG and cardiac monitoring as listed below: -Cardiac Monitoring: An order was placed for continuous cardiac monitoring. The monitor shows a rate of 70 with sinus rhythm. -ECG: none -Laboratory studies:Interpreted by me as stated above in MDM and shown below. Imaging studies: Xrays: As interpreted by me:none CTs show: none Procedures:none Critical Care: None Past Med/Surg History Problem List (Updated 03/07/25 @ 22:32 by Giorgio Lee DO) Anemia (Acute) Back pain (Acute) Acute blood loss anemia S/P spinal surgery (Acute) Multilevel lumbosacral spondylosis with radiculopathy Dysphagia Encounter for pre-operative examination Medical History Internal hemorrhoids Rosacea History of diverticulosis Seasonal allergies History of COVID-19 spring 2024 - resolved Morbid obesity with BMI of 45.0-49.9, adult Nausea and vomiting after administration of anesthetic agent Chronic back pain History of gastric ulcer teenage years Diabetes mellitus, type 2 History of anemia denies h/o blood transfusion Bruxism wears a mouth guard at night Temporomandibular joint disorder denies locking or clicking Hyperlipidemia Hypertension Surgical History History of surgery skin lesion removed right hand-precancerous cells History of hemorrhoidectomy with fistulectomy History of esophagogastroduodenoscopy (EGD) History of endometrial ablation History of dilatation and curettage Status post epidural steroid injection History of cholecystectomy History of wisdom tooth extraction History of tonsillectomy and adenoidectomy Hx of LASIK Family History Mother Family history of reaction to anesthesia difficulty waking Family hx colonic polyps Sister Family history of reaction to anesthesia "would just be really out there for hours after procedures" Grandmother (Maternal) Family history of diabetes mellitus Uncle Family history of diabetes mellitus Uncle Family history of diabetes mellitus Family/Other Family history of diabetes mellitus cousin Social History Smoking Status: Current every day smoker Second Hand Exposure: Yes (parents/both sisters smoked); Do You Dip or Chew Tobacco: No; Hx Alcohol Use: No Hx Substance Use: No Preferred Language: Serbian Communication Ability: Effective Certified Personal Trainer Required: No Beliefs That Will Affect Care: None Current Living Situation: Spouse Feels Safe at Home: Yes Assistive Devices: Walker Allergies Allergies Allergy/AdvReac Type Severity Reaction Status Date / Time latex Allergy Intermediate red, Verified 03/03/25 07:03 burning rash oxycodone [From Percocet] Allergy Intermediate severe Verified 03/03/25 07:03 vomiting Sulfa (Sulfonamide Allergy Intermediate rash/vomiti Verified 03/03/25 07:03 Antibiotics) ng montelukast AdvReac Severe "changed Verified 03/03/25 07:03 my personality" duloxetine AdvReac Unknown Gastrointestinal Verified 03/03/25 07:03 Upset lilacs Allergy Severe Anaphylaxis Uncoded 03/03/25 07:03 Home Meds Home Medications Medication Instructions Recorded Confirmed atorvastatin 20 mg tablet 20 mg PO HS 04/12/20 03/07/25 cyclobenzaprine 10 mg tablet 10 mg PO TID PRN Muscle Spasm 04/12/20 03/07/25 fenofibrate micronized 134 mg 134 mg PO QAM 04/12/20 03/07/25 capsule hydrochlorothiazide 25 mg tablet 25 mg PO QAM 04/12/20 03/07/25 lisinopril 40 mg tablet 40 mg PO QAM 04/12/20 03/07/25 meclizine 25 mg tablet 25 mg PO DAILY PRN Dizziness 04/12/20 03/07/25 metoprolol succinate 50 mg 50 mg PO HS 04/12/20 03/07/25 tablet,extended release 24 hr metronidazole 1 % topical gel 1 applic topical DAILY 04/12/20 03/07/25 (Metrogel) naproxen 500 mg tablet 500 mg PO BID PRN Pain 04/12/20 03/07/25 cetirizine 10 mg tablet (Zyrtec) 10 mg PO DAILY 02/04/25 03/07/25 cholecalciferol (vitamin D3) 125 125 mcg PO DAILY 02/04/25 03/07/25 mcg (5,000 unit) tablet (Vitamin D3) hydralazine 50 mg tablet 50 mg PO BID 02/04/25 03/07/25 magnesium 100 mg tablet 100 mg PO QAM 02/04/25 03/07/25 metformin 1,000 mg tablet 1,000 mg PO BID 03/03/25 03/07/25 pantoprazole 20 mg tablet,delayed 20 mg PO DAILY 03/03/25 03/07/25 release Previous Rx's Medication Instructions Recorded hydrocodone 5 mg-acetaminophen 325 1 tab PO Q6H PRN pain #30 tabs 03/03/25 mg tablet tramadol 50 mg tablet 50 mg PO Q6H PRN pain, moderate 03/03/25 #30 tabs Results & Data (ED) Vital Signs Vital Signs - 24 hr 03/07/25 17:43 03/07/25 18:00 03/07/25 18:15 Temperature 36.7 C Temperature Source Oral Pulse Rate 83 70 74 Pulse Rate from SpO2 Sensor 75 Pulse Rhythm Regular Regular Pulse Strength Normal Respiratory Rate 20 20 25 H Respiratory Effort / Characteristics Non-Labored Spontaneous Respiratory Depth Normal Respiratory Pattern Regular Blood Pressure 167/84 H Blood Pressure Mean 111 Blood Pressure Position Sitting Pulse Oximetry 96 97 98 Oxygen Delivery Method Room Air Room Air Sepsis Recent Fever Within 48 Hours No Sepsis New/Unexplained Change in Mental Status No Sepsis Action Taken by Nursing No Action Required 03/07/25 18:16 03/07/25 18:30 03/07/25 18:30 Temperature Temperature Source Pulse Rate 73 71 Pulse Rate from SpO2 Sensor 71 Pulse Rhythm Pulse Strength Respiratory Rate 17 Respiratory Effort / Characteristics Respiratory Depth Respiratory Pattern Blood Pressure 161/74 H Blood Pressure Mean 97 Blood Pressure Position Pulse Oximetry 93 Oxygen Delivery Method Sepsis Recent Fever Within 48 Hours Sepsis New/Unexplained Change in Mental Status Sepsis Action Taken by Nursing 03/07/25 18:30 03/07/25 18:30 03/07/25 18:45 Temperature Temperature Source Pulse Rate 69 Pulse Rate from SpO2 Sensor 69 Pulse Rhythm Pulse Strength Respiratory Rate 19 Respiratory Effort / Characteristics Respiratory Depth Respiratory Pattern Blood Pressure 161/74 H 161/74 H Blood Pressure Mean 97 97 Blood Pressure Position Pulse Oximetry 96 Oxygen Delivery Method Sepsis Recent Fever Within 48 Hours Sepsis New/Unexplained Change in Mental Status Sepsis Action Taken by Nursing 03/07/25 18:57 03/07/25 19:00 03/07/25 19:24 Temperature Temperature Source Pulse Rate 75 73 Pulse Rate from SpO2 Sensor 75 74 Pulse Rhythm Pulse Strength Respiratory Rate 20 27 H Respiratory Effort / Characteristics Respiratory Depth Respiratory Pattern Blood Pressure 156/73 H Blood Pressure Mean 93 Blood Pressure Position Pulse Oximetry 96 95 Oxygen Delivery Method Sepsis Recent Fever Within 48 Hours Sepsis New/Unexplained Change in Mental Status Sepsis Action Taken by Nursing 03/07/25 19:30 03/07/25 19:39 03/07/25 19:48 Temperature Temperature Source Pulse Rate 72 72 Pulse Rate from SpO2 Sensor 72 72 Pulse Rhythm Pulse Strength Respiratory Rate 24 16 Respiratory Effort / Characteristics Respiratory Depth Respiratory Pattern Blood Pressure 137/71 Blood Pressure Mean 87 Blood Pressure Position Pulse Oximetry 90 96 Oxygen Delivery Method Sepsis Recent Fever Within 48 Hours Sepsis New/Unexplained Change in Mental Status Sepsis Action Taken by Nursing 03/07/25 19:54 03/07/25 20:00 03/07/25 20:00 Temperature Temperature Source Pulse Rate 76 Pulse Rate from SpO2 Sensor 76 Pulse Rhythm Pulse Strength Respiratory Rate 20 Respiratory Effort / Characteristics Respiratory Depth Respiratory Pattern Blood Pressure 167/80 H 167/80 H Blood Pressure Mean 93 93 Blood Pressure Position Pulse Oximetry 94 Oxygen Delivery Method Sepsis Recent Fever Within 48 Hours Sepsis New/Unexplained Change in Mental Status Sepsis Action Taken by Nursing 03/07/25 20:00 03/07/25 20:03 03/07/25 20:18 Temperature Temperature Source Pulse Rate 76 76 Pulse Rate from SpO2 Sensor 74 76 Pulse Rhythm Pulse Strength Respiratory Rate 16 22 Respiratory Effort / Characteristics Respiratory Depth Respiratory Pattern Blood Pressure 167/80 H Blood Pressure Mean 93 Blood Pressure Position Pulse Oximetry 95 92 Oxygen Delivery Method Sepsis Recent Fever Within 48 Hours Sepsis New/Unexplained Change in Mental Status Sepsis Action Taken by Nursing 03/07/25 20:30 03/07/25 20:30 03/07/25 20:30 Temperature Temperature Source Pulse Rate 73 Pulse Rate from SpO2 Sensor 73 Pulse Rhythm Pulse Strength Respiratory Rate 16 Respiratory Effort / Characteristics Respiratory Depth Respiratory Pattern Blood Pressure 157/67 H 157/67 H Blood Pressure Mean 102 102 Blood Pressure Position Pulse Oximetry 95 Oxygen Delivery Method Sepsis Recent Fever Within 48 Hours Sepsis New/Unexplained Change in Mental Status Sepsis Action Taken by Nursing 03/07/25 20:54 03/07/25 21:00 03/07/25 21:06 Temperature Temperature Source Pulse Rate 73 72 Pulse Rate from SpO2 Sensor 73 73 Pulse Rhythm Pulse Strength Respiratory Rate 20 17 Respiratory Effort / Characteristics Respiratory Depth Respiratory Pattern Blood Pressure 141/76 H Blood Pressure Mean 125 Blood Pressure Position Pulse Oximetry 91 95 Oxygen Delivery Method Sepsis Recent Fever Within 48 Hours Sepsis New/Unexplained Change in Mental Status Sepsis Action Taken by Nursing 03/07/25 22:10 Temperature Temperature Source Pulse Rate 75 Pulse Rate from SpO2 Sensor Pulse Rhythm Pulse Strength Respiratory Rate Respiratory Effort / Characteristics Respiratory Depth Respiratory Pattern Blood Pressure Blood Pressure Mean Blood Pressure Position Pulse Oximetry Oxygen Delivery Method Sepsis Recent Fever Within 48 Hours Sepsis New/Unexplained Change in Mental Status Sepsis Action Taken by Nursing Laboratory Data 03/07/25 18:05 03/07/25 18:05 Lab Results 03/07/25 Range/Units 18:05 WBC 10.75 (4.8-10.8) K/ul RBC 3.63 L (4.20-5.40) M/uL Hgb 9.6 L (12.0-16.0) g/dl Hct 30.4 L (37.0-47.0) % MCV 83.7 (80.0-100.0) fL MCH 26.4 (25.0-34.0) pg MCHC 31.6 L (32.0-36.0) g/dL RDW Std Deviation 42.3 (36.4-46.3) fL RDW Coeff of Brigitte 13.7 (11.5-14.5) % Plt Count 290 (130-400) K/uL MPV 9.6 (9.4-12.4) fL Immature Gran % (Auto) 0.7 % Neut % (Auto) 61.1 % Lymph % (Auto) 28.5 % Craven % (Auto) 8.1 % Eos % (Auto) 1.0 % Baso % (Auto) 0.6 % Neut # (Auto) 6.58 H (1.40-6.50) K/uL Lymph # (Auto) 3.06 (1.20-3.40) K/uL Craven # (Auto) 0.87 H (0.11-0.59) K/uL Eos # (Auto) 0.11 (0.00-0.50) K/uL Baso # (Auto) 0.06 (0.00-0.20) K/uL Immature Gran # (Auto) 0.07 (0.01-0.20) K/uL Sodium 140 (136-145) mmol/L Potassium 3.7 (3.5-5.1) mmol/L Chloride 104 (98-107) mmol/L Carbon Dioxide 25 (21-32) mmol/L Anion Gap 11 (3-11) BUN 24 H (6-23) mg/dl Creatinine 0.90 (0.6-1.2) mg/dl Est Cr Clr Drug Dosing 79.7 ml/min eGFR 72.73 BUN/Creatinine Ratio 26.7 H (10-20) Glucose 140 H (70-99(Fasting)) mg/dl Calcium 9.5 (8.6-10.3) mg/dl Total Bilirubin 0.3 (0.2-1.0) mg/dl AST 15 (13-39) U/L ALT 12 (7-52) U/L Alkaline Phosphatase 63 (34-104) U/L Total Protein 6.6 (6.0-8.3) gm/dl Albumin 3.4 (3.4-5.0) gm/dl Globulin 3.2 (2.5-4.0) gm/dl Albumin/Globulin Ratio 1.1 (0.9-2) Administered Medications Discontinued Medications Dexamethasone Sodium Phosphate (DexamethasonePf 10 Mg/Ml Vial) 10 mg IV NOW ONE Stop: 03/07/25 19:55 Last Admin: 03/07/25 20:02 Dose: 10 mg Documented By: mls Morphine Sulfate (Morphine Sulfate 10 Mg/Ml Carp/Vial) 6 mg IV NOW STA Stop: 03/07/25 18:01 Last Admin: 03/07/25 18:13 Dose: 6 mg Documented By: natalia Morphine Sulfate (Morphine Sulfate 4 Mg/Ml 1 Ml Carp\\Vial) 4 mg IV NOW STA Stop: 03/07/25 19:56 Last Admin: 03/07/25 20:02 Dose: 4 mg Documented By: natalia Ondansetron HCl (Ondansetron Inj 2 Mg/Ml 2 Ml Vial) 4 mg IV NOW STA Stop: 03/07/25 18:01 Last Admin: 03/07/25 18:13 Dose: 4 mg Documented By: natalia Discharge Plan Visit Data Chief Complaint: Back Injury/Pain Stated Complaint: BACK PAIN ED Provider: Giorgio Lee Discharge Problem: Back pain, S/P spinal surgery, Anemia Condition: Fair Forms Stand Alone Forms: [facility] [employer] Prescriptions Prescriptions: No Action cyclobenzaprine 10 mg Tablet 10 mg PO TID PRN (Reason: Muscle Spasm) atorvastatin 20 mg Tablet 20 mg PO HS metoprolol succinate 50 mg Tablet Extended Release 24 Hr 50 mg PO HS fenofibrate micronized 134 mg Capsule 134 mg PO QAM meclizine 25 mg Tablet 25 mg PO DAILY PRN (Reason: Dizziness) hydrochlorothiazide 25 mg Tablet 25 mg PO QAM lisinopril 40 mg Tablet 40 mg PO QAM naproxen 500 mg Tablet 500 mg PO BID PRN (Reason: Pain) metronidazole [Metrogel] 1 % Gel 1 applic TOPICAL DAILY cetirizine [Zyrtec] 10 mg Tablet 10 mg PO DAILY magnesium 100 mg Tablet 100 mg PO QAM hydralazine 50 mg Tablet 50 mg PO BID cholecalciferol (vitamin D3) [Vitamin D3] 125 mcg (5,000 unit) Tablet 125 mcg PO DAILY metformin 1,000 mg tablet 1,000 mg PO BID pantoprazole 20 mg tablet,delayed release (DR/EC) 20 mg PO DAILY hydrocodone-acetaminophen 5-325 mg tablet 1 tab PO Q6H PRN (Reason: pain) Qty: 30 0RF Rx Instructions: Hydrocodone for severe pain tramadol for moderate pain tramadol 50 mg tablet 50 mg PO Q6H PRN (Reason: pain, moderate) Qty: 30 0RF Referrals Referrals: Kareen San MD [Primary Care Provider] - Discharge Problem: Back pain Qualifiers: Back pain location: low back pain Chronicity: acute Back pain laterality: u nspecified Sciatica presence: unspecified whether sciatica present Qualified Code(s): M54.50 - Low back pain, unspecified Anemia Qualifiers: Anemia type: unspecified type Qualified Code(s): D64.9 - Anemia, unspecified
[2025-03-07] MEDS: ONDANSETRON INJ 2 MG/ML 2 ML VIAL IV STA (18:13)
[2025-03-07] MEDS: MoRPHine SULFATE 10 MG/ML CARP/VIAL IV STA (18:13)
[2025-03-07 18:19] LABS: Hematocrit (blood only) 30.4 % (37.0-47.0); Hemoglobin 9.6 g/dl (12.0-16.0); Immature Granulocytes # (auto) 0.07 K/uL (0.01-0.20); Immature Granulocytes % (auto) 0.7 %; Mean Corpuscular Hemoglobin 26.4 pg (25.0-34.0); Mean Corpuscular Volume 83.7 fL (80.0-100.0); Platelet Count 290 K/uL (130-400); RDW Standard Deviation 42.3 fL (36.4-46.3); Red Blood Count 3.63 M/uL (4.20-5.40); White Blood Count 10.75 K/ul (4.8-10.8)
[2025-03-07 18:36] LABS: Alanine Aminotransferase 12.0 U/L (7-52); Albumin Globulin Ratio 1.1 (0.9-2); Albumin Level 3.4 gm/dl (3.4-5.0); Alkaline Phosphatase 63.0 U/L (34-104); Anion Gap 11.0 (3-11); Bilirubin,Total 0.3 mg/dl (0.2-1.0); Blood Urea Nitrogen 24.0 mg/dl (6-23); Calcium 9.5 mg/dl (8.6-10.3); Carbon Dioxide 25.0 mmol/L (21-32); Chloride 104.0 mmol/L (98-107); Creatinine Clr Calc Pharmacy 79.7 ml/min; Globulin 3.2 gm/dl (2.5-4.0); Glucose 140.0 mg/dl (70-99(Fasting)); Potassium 3.7 mmol/L (3.5-5.1); Sodium 140.0 mmol/L (136-145); Total Protein 6.6 gm/dl (6.0-8.3)
[2025-03-07] MEDS: MoRPHine SULFATE 4 MG/ML 1 ML CARP\\VIAL IV STA (20:02)
[2025-03-07] MEDS: dexAMETHasone**PF** 10 MG/ML VIAL IV ONE (20:02)
[2025-03-07] MEDS ORDERED: PHARMACY GLYCEMIC MGMT CONSULT PRN (23:32)
[2025-03-07] MEDS ORDERED: ACETAMINOPHEN 500 MG TAB PO PRN (23:32)
[2025-03-07] MEDS ORDERED: MECLIZINE HCL 25 MG TAB PO PRN (23:32)
[2025-03-07] MEDS ORDERED: PROMETHAZINE 12.5 MG/50.5 ML BAG IV PRN (23:32)
[2025-03-07] MEDS ORDERED: HYDROmorphone INJ 0.5 MG/0.5 ML SYR IV PRN (23:32)
[2025-03-07] MEDS ORDERED: METOCLOPRAMIDE HCL INJ 5 MG/ML 2 ML VIAL IV PRN (23:32)
[2025-03-07] MEDS ORDERED: LORazepam Inj 0.5 MG in SYRINGE 0.25 ML IV PRN (23:32)
[2025-03-07] MEDS ORDERED: ONDANSETRON 4 MG OD TAB PO PRN (23:32)
[2025-03-07] MEDS ORDERED: NALOXONE HCL 0.4 MG/1 ML VIAL/CARP IV PRN (23:32)
[2025-03-07] MEDS ORDERED: ACETAMINOPHEN 1,000 MG/100 ML VIAL IV PRN (23:32)
[2025-03-08] MEDS: CYCLOBENZAPRINE HCL 10 MG TAB PO PRN (00:21)
[2025-03-08] MEDS: LORazepam 0.5 MG TAB PO PRN (00:21)
[2025-03-08] MEDS: ATORVASTATIN 20 MG TAB PO SCH (00:22)
[2025-03-08] MEDS: SODIUM CHLORIDE 0.9% 1,000 ML IV SCH (00:23)
[2025-03-08] MEDS: HYDROmorphone INJ 1 MG/ML SYRINGE IV PRN (00:23)
[2025-03-08] MEDS: METOPROLOL SUCC 50MG EXT REL TAB PO SCH (00:23)
[2025-03-08] MEDS ORDERED: GLUCOSE 10 TAB/TUBE PO PRN (01:00)
[2025-03-08] MEDS ORDERED: DEXTROSE 50% 50 ML SYRINGE IV PRN (01:00)
[2025-03-08] MEDS ORDERED: GLUCAGON FOR INJ 1 MG VIAL SQ PRN (01:00)
[2025-03-08] MEDS ORDERED: GLUCOSE 40% GEL 15 GM TUBE PO PRN (01:00)
[2025-03-08] MEDS ORDERED: CARBOHYDRATES FOR HYPOGLYCEMIA PO PRN (01:00)
[2025-03-08] MEDS: INSULIN ASPART PER UNIT CHARGE SC SCH (01:25)
[2025-03-08] MEDS: LANTUS PER UNIT CHARGE SC STA (01:25)
--- NOTE | 2025-03-08 02:02 | Consultation ---
Date of Consultation March 08, 2025 Assessment & Plan (1) Back pain: 59-year-old female with past medical history significant for hypertension, hyperlipidemia, morbid obesity, GERD, osteoarthritis of spine, who recently on March 03 2025 had lumbar spinal decompression surgery and was discharged yes terday comes back with severe back pain and weakness in the right leg. Patient states prior to discharge she was walking okay. At home also today morning she walked fine. But later in the day she noticed severe pain in the back and also her right leg was giving away which prompted her to come to the ER. Currently resting comfortably and hemodynamically stable. Denies any chest pain. No shortness of breath. No fevers. No cough. No headache. No runny nose or sore throat. Appetite is okay. Normal bowel bowel and bladder movements. Back pain Recent lumbar decompression surgery Pain controlled Placed on Decadron Further management as per orthopedics Hypertension On hydralazine, hydrochlorothiazide, lisinopril and metoprolol succinate Will monitor Diabetes Hold metformin Sliding scale Close monitor while on Decadron GERD Protonix Hyperlipidemia On fenofibrate and statin DVT prophylaxis As per Ortho History of Present Illness Reason for Consultation: Back pain Attending Physician: David Gibbs, DO History of Present Illness 59-year-old female with past medical history significant for hypertension, hyperlipidemia, morbid obesity, GERD, osteoarthritis of spine, who recently on March 03 2025 had lumbar spinal decompression surgery and was discharged yesterday comes back with severe back pain and weakness in the right leg. Patient states prior to discharge she was walking okay. At home also today morning she walked fine. But later in the day she noticed severe pain in the back and also her right leg was giving away which prompted her to come to the ER. Currently resting comfortably and hemodynamically stable. Denies any chest pain. No shortness of breath. No fevers. No cough. No headache. No runny nose or sore throat. Appetite is okay. Normal bowel bowel and bladder movements. Past medical history. As mentioned above Past surgical history. Colonoscopy. Dental surgery. EGD. Endometrial thermal ablation. Hemorrhoidectomy. Hysteroscopy with biopsy. Injection lumbosacral spine. Appendectomy. Tonsillectomy. Open cholecystectomy. Social history. . No smoking. No alcohol use. No drug use. Family history. Mother had asthma. Stroke. Blood clots. Hyperlipidemia. CHF. Father had cancer. Sister had uterine cancer. Sister had breast cancer. Siste had r small cell lung cancer. Allergies Allergy/AdvReac Type Severity Reaction Status Date / Time latex Allergy Intermediate red, Verified 03/03/25 07:03 burning rash oxycodone [From Percocet] Allergy Intermediate severe Verified 03/03/25 07:03 vomiting Sulfa (Sulfonamide Allergy Intermediate rash/vomiti Verified 03/03/25 07:03 Antibiotics) ng montelukast AdvReac Severe "changed Verified 03/03/25 07:03 my personality" duloxetine AdvReac Unknown Gastrointestinal Verified 03/03/25 07:03 Upset lilacs Allergy Severe Anaphylaxis Uncoded 03/03/25 07:03 Home Medications Medication Instructions Recorded Confirmed Type atorvastatin 20 mg tablet 20 mg PO HS 04/12/20 03/07/25 History cyclobenzaprine 10 mg tablet 10 mg PO TID PRN Muscle Spasm 04/12/20 03/07/25 History fenofibrate micronized 134 mg 134 mg PO QAM 04/12/20 03/07/25 History capsule hydrochlorothiazide 25 mg tablet 25 mg PO QAM 04/12/20 03/07/25 History lisinopril 40 mg tablet 40 mg PO QAM 04/12/20 03/07/25 History meclizine 25 mg tablet 25 mg PO DAILY PRN Dizziness 04/12/20 03/07/25 History metoprolol succinate 50 mg 50 mg PO HS 04/12/20 03/07/25 History tablet,extended release 24 hr metronidazole 1 % topical gel 1 applic topical DAILY 04/12/20 03/07/25 History (Metrogel) naproxen 500 mg tablet 500 mg PO BID PRN Pain 04/12/20 03/07/25 History cetirizine 10 mg tablet (Zyrtec) 10 mg PO DAILY 02/04/25 03/07/25 History cholecalciferol (vitamin D3) 125 125 mcg PO DAILY 02/04/25 03/07/25 History mcg (5,000 unit) tablet (Vitamin D3) hydralazine 50 mg tablet 50 mg PO BID 02/04/25 03/07/25 History magnesium 100 mg tablet 100 mg PO QAM 02/04/25 03/07/25 History hydrocodone 5 mg-acetaminophen 325 1 tab PO Q6H PRN pain #30 tabs 03/03/25 03/07/25 Rx mg tablet metformin 1,000 mg tablet 1,000 mg PO BID 03/03/25 03/07/25 History pantoprazole 20 mg tablet,delayed 20 mg PO DAILY 03/03/25 03/07/25 History release tramadol 50 mg tablet 50 mg PO Q6H PRN pain, moderate 03/03/25 03/07/25 Rx #30 tabs Patient History Medical History Internal hemorrhoids Rosacea History of diverticulosis Seasonal allergies History of COVID-19 spring 2024 - resolved Morbid obesity with BMI of 45.0-49.9, adult Nausea and vomiting after administration of anesthetic agent Chronic back pain History of gastric ulcer teenage years Diabetes mellitus, type 2 History of anemia denies h/o blood transfusion Bruxism wears a mouth guard at night Temporomandibular joint disorder denies locking or clicking Hyperlipidemia Hypertension Surgical History History of surgery skin lesion removed right hand-precancerous cells History of hemorrhoidectomy with fistulectomy History of esophagogastroduodenoscopy (EGD) History of endometrial ablation History of dilatation and curettage Status post epidural steroid injection History of cholecystectomy History of wisdom tooth extraction History of tonsillectomy and adenoidectomy Hx of LASIK Family History Mother Family history of reaction to anesthesia difficulty waking Family hx colonic polyps Sister Family history of reaction to anesthesia "would just be really out there for hours after procedures" Grandmother (Maternal) Family history of diabetes mellitus Uncle Family history of diabetes mellitus Uncle Family history of diabetes mellitus Family/Other Family history of diabetes mellitus cousin Social History Smoking Status: Former smoker Second Hand Exposure: Yes (parents/both sisters smoked); Do You Dip or Chew Tobacco: No; Hx Alcohol Use: No Hx Substance Use: No Preferred Language: Maldivian Communication Ability: Effective 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 Lungs- clear to auscultation no wheezing or crackles Heart- regular rhythm; no murmur, no gallop. Abdomen- normal bowel sounds, soft, nontender, no distension Extremities- no pretibial edema, no erythema seen Neuro- alert, oriented EOMI; no facial palsy; no dysarthria; moves extremities Musculoskeletal Back surgery site in dressing Results & Data Vital Signs (Past 12 Hours) Vital Signs Temp Pulse Pulse Resp BP BP Pulse Ox 03/07/25 23:59 03/07/25 23:47 36.8 C 89 19 153/83 H 96 03/07/25 22:10 75 03/07/25 21:06 72 17 95 03/07/25 21:00 141/76 H 03/07/25 20:54 73 20 91 03/07/25 20:30 73 16 95 03/07/25 20:30 157/67 H 03/07/25 20:30 157/67 H 03/07/25 20:18 76 22 92 03/07/25 20:03 76 16 95 03/07/25 20:00 167/80 H 03/07/25 20:00 167/80 H 03/07/25 20:00 167/80 H 03/07/25 19:54 76 20 94 03/07/25 19:48 72 16 96 03/07/25 19:39 72 24 90 03/07/25 19:30 137/71 03/07/25 19:24 73 27 H 95 03/07/25 19:00 156/73 H 03/07/25 18:57 75 20 96 03/07/25 18:45 69 19 96 03/07/25 18:30 161/74 H 03/07/25 18:30 161/74 H 03/07/25 18:30 161/74 H 03/07/25 18:30 71 17 93 03/07/25 18:16 73 03/07/25 18:15 74 25 H 98 03/07/25 18:00 70 20 97 03/07/25 17:43 36.7 C 83 20 167/84 H 96 O2 Del Method 03/07/25 23:59 Room Air 03/07/25 23:47 Room Air 03/07/25 22:10 03/07/25 21:06 03/07/25 21:00 03/07/25 20:54 03/07/25 20:30 03/07/25 20:30 03/07/25 20:30 03/07/25 20:18 03/07/25 20:03 03/07/25 20:00 03/07/25 20:00 03/07/25 20:00 03/07/25 19:54 03/07/25 19:48 03/07/25 19:39 03/07/25 19:30 03/07/25 19:24 03/07/25 19:00 03/07/25 18:57 03/07/25 18:45 03/07/25 18:30 03/07/25 18:30 03/07/25 18:30 03/07/25 18:30 03/07/25 18:16 03/07/25 18:15 03/07/25 18:00 Room Air 03/07/25 17:43 Room Air Diagnostic Findings Laboratory Results WBC 10.75 K/ul (4.8-10.8) 03/07/25 18:05 RBC 3.63 M/uL (4.20-5.40) L 03/07/25 18:05 Hgb 9.6 g/dl (12.0-16.0) L 03/07/25 18:05 Hct 30.4 % (37.0-47.0) L 03/07/25 18:05 MCV 83.7 fL (80.0-100.0) 03/07/25 18:05 MCH 26.4 pg (25.0-34.0) 03/07/25 18:05 MCHC 31.6 g/dL (32.0-36.0) L 03/07/25 18:05 RDW Std Deviation 42.3 fL (36.4-46.3) 03/07/25 18:05 RDW Coeff of Brigitte 13.7 % (11.5-14.5) 03/07/25 18:05 Plt Count 290 K/uL (130-400) 03/07/25 18:05 MPV 9.6 fL (9.4-12.4) 03/07/25 18:05 Immature Gran % (Auto) 0.7 % 03/07/25 18:05 Neut % (Auto) 61.1 % 03/07/25 18:05 Lymph % (Auto) 28.5 % 03/07/25 18:05 Taney % (Auto) 8.1 % 03/07/25 18:05 Eos % (Auto) 1.0 % 03/07/25 18:05 Baso % (Auto) 0.6 % 03/07/25 18:05 Neut # (Auto) 6.58 K/uL (1.40-6.50) H 03/07/25 18:05 Lymph # (Auto) 3.06 K/uL (1.20-3.40) 03/07/25 18:05 Taney # (Auto) 0.87 K/uL (0.11-0.59) H 03/07/25 18:05 Eos # (Auto) 0.11 K/uL (0.00-0.50) 03/07/25 18:05 Baso # (Auto) 0.06 K/uL (0.00-0.20) 03/07/25 18:05 Immature Gran # (Auto) 0.07 K/uL (0.01-0.20) 03/07/25 18:05 Sodium 140 mmol/L (136-145) 03/07/25 18:05 Potassium 3.7 mmol/L (3.5-5.1) 03/07/25 18:05 Chloride 104 mmol/L (98-107) 03/07/25 18:05 Carbon Dioxide 25 mmol/L (21-32) 03/07/25 18:05 Anion Gap 11 (3-11) 03/07/25 18:05 BUN 24 mg/dl (6-23) H 03/07/25 18:05 Creatinine 0.90 mg/dl (0.6-1.2) 03/07/25 18:05 Est Cr Clr Drug Dosing 79.7 ml/min 03/07/25 18:05 eGFR 72.73 03/07/25 18:05 BUN/Creatinine Ratio 26.7 (10-20) H 03/07/25 18:05 Glucose 140 mg/dl (70-99(Fasting)) H 03/07/25 18:05 POC Glucose 158 mg/dl (70-99) H 03/07/25 23:44 Calcium 9.5 mg/dl (8.6-10.3) 03/07/25 18:05 Total Bilirubin 0.3 mg/dl (0.2-1.0) 03/07/25 18:05 AST 15 U/L (13-39) 03/07/25 18:05 ALT 12 U/L (7-52) 03/07/25 18:05 Alkaline Phosphatase 63 U/L (34-104) 03/07/25 18:05 Total Protein 6.6 gm/dl (6.0-8.3) 03/07/25 18:05 Albumin 3.4 gm/dl (3.4-5.0) 03/07/25 18:05 Globulin 3.2 gm/dl (2.5-4.0) 03/07/25 18:05 Albumin/Globulin Ratio 1.1 (0.9-2) 03/07/25 18:05 (1) Back pain Back pain laterality: unspecified Back pain location: low back pain Chronicity: acute Sciatica presence: unspecified whether sciatica present Qualified Code(s): M54.50 - Low back pain, unspecified
[2025-03-08] MEDS: dexAMETHasone 8 MG in SYRINGE 0 ML IV SCH (04:00)
[2025-03-08] MEDS: hydroCHLOROthiazide 25 MG TAB PO SCH (08:57)
[2025-03-08] MEDS: MAGNESIUM OXIDE 400 MG TAB PO SCH (09:00)
[2025-03-08] MEDS: FENOFIBRATE NANOCRYSTALLIZED 145 MG TABLET PO SCH (09:02)
[2025-03-08] MEDS: CETIRIZINE HCL 10 MG TABLET PO SCH (09:03)
[2025-03-08] MEDS: CHOLECALCIFEROL 125 MCG (5,000 UNITS) TAB PO SCH (09:03)
[2025-03-08] MEDS: LANTUS PER UNIT CHARGE SC ONE (09:08)
--- NOTE | 2025-03-08 10:19 | History & Physical Report ---
Date of Service March 08, 2025 Assessment & Plan (1) S/P spinal surgery: Plan: At this time we will obtain a CAT scan lumbar spine to rule out any loss of fixation that could have contributed to her decline. At this point we will maintain bedrest and hope for to initiate physical therapy tomorrow. Admission and Anticipated Discharge Date Admission Date: March 07, 2025 History of Present Illness Chief Complaint: Postoperative back pain Primary Care Provider: Kareen San MD This is a 59-year-old female well-known to me the presents the emergency room yesterday after having just been discharged. She states she would return home after surgery was doing well until Saturday she began experiencing severe back pain radiating into the left flank and down her left leg. This morning she is somewhat improved after night of rest and some steroids. She denies any numbness or tingling in her legs or leg pain at this time. She describes back pain with movement in the bed only. Allergies Allergy/AdvReac Type Severity Reaction Status Date / Time latex Allergy Intermediate red, Verified 03/03/25 07:03 burning rash oxycodone [From Percocet] Allergy Intermediate severe Verified 03/03/25 07:03 vomiting Sulfa (Sulfonamide Allergy Intermediate rash/vomiti Verified 03/03/25 07:03 Antibiotics) ng montelukast AdvReac Severe "changed Verified 03/03/25 07:03 my personality" duloxetine AdvReac Unknown Gastrointestinal Verified 03/03/25 07:03 Upset lilacs Allergy Severe Anaphylaxis Uncoded 03/03/25 07:03 Home Medications Medication Instructions Recorded Confirmed Type atorvastatin 20 mg tablet 20 mg PO HS 04/12/20 03/07/25 History cyclobenzaprine 10 mg tablet 10 mg PO TID PRN Muscle Spasm 04/12/20 03/07/25 History fenofibrate micronized 134 mg 134 mg PO QAM 04/12/20 03/07/25 History capsule hydrochlorothiazide 25 mg tablet 25 mg PO QAM 04/12/20 03/07/25 History lisinopril 40 mg tablet 40 mg PO QAM 04/12/20 03/07/25 History meclizine 25 mg tablet 25 mg PO DAILY PRN Dizziness 04/12/20 03/07/25 History metoprolol succinate 50 mg 50 mg PO HS 04/12/20 03/07/25 History tablet,extended release 24 hr metronidazole 1 % topical gel 1 applic topical DAILY 04/12/20 03/07/25 History (Metrogel) naproxen 500 mg tablet 500 mg PO BID PRN Pain 04/12/20 03/07/25 History cetirizine 10 mg tablet (Zyrtec) 10 mg PO DAILY 02/04/25 03/07/25 History cholecalciferol (vitamin D3) 125 125 mcg PO DAILY 02/04/25 03/07/25 History mcg (5,000 unit) tablet (Vitamin D3) hydralazine 50 mg tablet 50 mg PO BID 02/04/25 03/07/25 History magnesium 100 mg tablet 100 mg PO QAM 02/04/25 03/07/25 History hydrocodone 5 mg-acetaminophen 325 1 tab PO Q6H PRN pain #30 tabs 03/03/25 03/07/25 Rx mg tablet metformin 1,000 mg tablet 1,000 mg PO BID 03/03/25 03/07/25 History pantoprazole 20 mg tablet,delayed 20 mg PO DAILY 03/03/25 03/07/25 History release tramadol 50 mg tablet 50 mg PO Q6H PRN pain, moderate 03/03/25 03/07/25 Rx #30 tabs Past Med/Surg History Problem List (Updated 03/07/25 @ 22:32 by Giorgio Lee DO) Anemia (Acute) Back pain (Acute) Acute blood loss anemia S/P spinal surgery (Acute) Multilevel lumbosacral spondylosis with radiculopathy Dysphagia Encounter for pre-operative examination Medical History Internal hemorrhoids Rosacea History of diverticulosis Seasonal allergies History of COVID-spring - resolved Morbid obesity with BMI of 45.0-49.9, adult Nausea and vomiting after administration of anesthetic agent Chronic back pain History of gastric ulcer teenage years Diabetes mellitus, type 2 History of anemia denies h/o blood transfusion Bruxism wears a mouth guard at night Temporomandibular joint disorder denies locking or clicking Hyperlipidemia Hypertension Surgical History History of surgery skin lesion removed right hand-precancerous cells History of hemorrhoidectomy with fistulectomy History of esophagogastroduodenoscopy (EGD) History of endometrial ablation History of dilatation and curettage Status post epidural steroid injection History of cholecystectomy History of wisdom tooth extraction History of tonsillectomy and adenoidectomy Hx of LASIK Family History Mother Family history of reaction to anesthesia difficulty waking Family hx colonic polyps Sister Family history of reaction to anesthesia "would just be really out there for hours after procedures" Grandmother (Maternal) Family history of diabetes mellitus Uncle Family history of diabetes mellitus Uncle Family history of diabetes mellitus Family/Other Family history of diabetes mellitus cousin Social History Smoking Status: Former smoker Second Hand Exposure: Yes (parents/both sisters smoked); Do You Dip or Chew Tobacco: No; Hx Alcohol Use: No Hx Substance Use: No Preferred Language: Spanish Communication Ability: Effective 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 Sensory is intact. Results & Data Results & Data Vital Signs (Past 12 Hours) Vital Signs Temp Pulse Resp BP Pulse Ox O2 Del Method 03/08/25 09:00 70 151/71 H 03/08/25 08:01 36.7 C 69 16 157/78 H 92 Room Air 03/07/25 23:59 Room Air 03/07/25 23:47 36.8 C 89 19 153/83 H 96 Room Air Code Status & VTE Plan VTE Prophylaxis Plan VTE Prophylaxis will be ordered: Yes
[2025-03-08] MEDS: ONDANSETRON INJ 2 MG/ML 2 ML VIAL IV PRN (11:34)
--- NOTE | 2025-03-08 11:36 | CT Scan Report ---
CT OF THE LUMBAR SPINE CLINICAL HISTORY: Back pain. COMPARISON STUDY: Lumbar spine fluoroscopic images March 03, 2025. TECHNIQUE: Helical axial images of the lumbar spine were obtained. Sagittal and coronal reconstruct ions were viewed. Automated exposure control was utilized for the study. A dose lowering technique was utilized adhering to the principles of ALARA. FINDINGS: This exam is mildly compromised given difficulty positioning. For purposes of numbering on this exam, the L5-S1 disc space is assigned to axial image 321 of 443. There are postoperative findin gs consistent with L2-L3 and L3-L4 discectomy with interbody spacer placement. There is a posterior d ecompression with bilateral pedicle screw fusion from L2 through L4. The hardware is intact. There ar e no unexpected radiopaque foreign bodies. A small amount of gas within the left posterior epidural s pace at the L2-L3 level is likely postsurgical. An associated fluid collection cannot be excluded by CT. Evaluation of the central canal and neural foramen is significantly compromised given CT techniqu e and artifact from the surgical hardware. Fluid and a small amount of gas within the laminectomy bed are present. IMPRESSION: 1. No acute lumbar spine fracture or subluxation. 2. Status post L2-L4 decompression and fusion. Hardware intact. No unexpected radiopaque foreign bodi es. As expected, fluid and a small amount of gas within the laminectomy bed. 3. Small amount of gas within the left posterior epidural space at the L2-L3 level which is likely po stsurgical. An associated fluid collection cannot be excluded by CT. Evaluation of the central canal and neural foramen significantly compromised by CT technique and artifact related to surgical hardwar e. ACT 112: Negative or not required by law. Electronically signed by: Jax Marrero M.D. 03/08/2025 11:35 AM
--- NOTE | 2025-03-08 12:20 | Hospitalist Progress Note ---
Date of Service March 08, 2025 Assessment & Plan (1) Back pain: Plan: 59-year-old female with past medical history significant for hypertension, hyperlipidemia, morbid obesity, GERD, osteoarthritis of spine, who recently on March 03 2025 had lumbar spinal decompression surgery and was discharged 03/06 comes back 03/07 with severe back pain and weakness in the right leg. Patient states prior to discharge she was walking okay. At home also 03/07 morning she walked fine. But later in the day she noticed severe pain in the back and also her right leg was giving away which prompted her to come to the ER. Back pain Recent lumbar decompression surgery Pain controlled, lumbar CT reviewed expected post surgical changes. Placed on Decadron Further management as per orthopedics Hypertension On hydralazine, hydrochlorothiazide, lisinopril and metoprolol succinate. continue Will monitor Diabetes Hold metformin Sliding scale Close monitor while on Decadron GERD: Protonix Hyperlipidemia: On fenofibrate and statin DVT prophylaxis: SCDs, chemo dvt px w/ clearance from ortho spine Admission and Anticipated Discharge Date Admission Date: March 07, 2025 Subjective Patient was seen and examined at bedside. Patient was lying in bed, on room air, NAD, resting comfortably. Patient reports increased back pain with some movement, no pain on palpation. Patient denies any fever/cough/sore throat/chest pain/numbness or tingling in the perineum and lower limbs/incontinence of bowel and bladder. Physical Exam Physical Exam: General- Not in distress Head- atraumatic Eyes- EOMI ENT- oropharynx clear Neck- supple, no JVD. Lungs- clear to auscultation no wheezing or crackles Heart- regular rhythm; no murmur, no gallop. Abdomen- normal bowel sounds, soft, nontender, no distension Extremities- no pretibial edema, no erythema seen Neuro- alert, oriented EOMI; no facial palsy; no dysarthria; moves extremities Musculoskeletal Back surgery site in dressing c/d/i Results & Data Results & Data Vital Signs (Past 12 Hours) Vital Signs Temp Pulse Resp BP Pulse Ox O2 Del Method 03/08/25 09:00 70 151/71 H 03/08/25 08:01 36.7 C 69 16 157/78 H 92 Room Air (1) Back pain Back pain laterality: unspecified Back pain location: low back pain Chronicity: acute Sciatica presence: unspecified whether sciatica present Qualified Code(s): M54.50 - Low back pain, unspecified
--- NOTE | 2025-03-08 12:51 | Pharmacy Report ---
Pharmacy Glycemic Short Note 2 - Date of Service March 08, 2025 - Glycemic Short BSG Results (Last 24 hours): 03/07/25 03/07/25 03/08/25 18:05 23:44 07:50 Glucose 140 H POC Glucose 158 H 173 H 03/08/25 11:34 Glucose POC Glucose 168 H OUTPATIENT ANTIDIABETIC REGIMEN: * metformin 1000mg PO BID HbA1c: 6.9% on 02/10/25 ASSESSMENT: * Bia is a 59 year old female who was admitted 03/07 with severe back pain and weakness in the right leg s/p lumbar spinal decompression surgery on 03/03. She was placed on dexamethasone and pharmacy was consulted for glycemic management. * BSG at HS last evening was 158mg/dL. Lantus 10 units SQ x 1 was ordered and a weight based bolus insulin regimen with a stress between 1 and 2 was started. * Fasting BSG was 173mg/dL this morning. An additional 10 units of SQ Lantus x 1 was ordered and CR was tightened starting at lunch time. * She continues on dexamethasone 8mg iv q 8 hours through today, so expect insulin needs to start to decline as steroids wear off. PLAN FOR INPATIENT GLYCEMIC CONTROL: * Hold outpatient oral diabetes medications * Basal insulin * Lantus 10 units SQ x 1 last HS and x 1 this morning. Further need to be reassessed 03/09 with stop of steroids * Bolus insulin * NovoLog per scale ACHS or Q6hrs while NPO * Goal Range: Low 120 mg/dL - High 150 mg/dL * Correction Factor: 25 mg/dL/unit * Nutritional / Prandial insulin per carb ratio of 1 unit per 8 grams CHO consumed
[2025-03-09] MEDS ORDERED: KETOROLAC 30 MG/ML VIAL IV PRN (06:08)
[2025-03-09 06:42] LABS: Hematocrit (blood only) 27.8 % (37.0-47.0); Hemoglobin 9.0 g/dl (12.0-16.0); Mean Corpuscular Hemoglobin 26.6 pg (25.0-34.0); Mean Corpuscular Volume 82.2 fL (80.0-100.0); Platelet Count 302 K/uL (130-400); RDW Standard Deviation 41.0 fL (36.4-46.3); Red Blood Count 3.38 M/uL (4.20-5.40); White Blood Count 8.91 K/ul (4.8-10.8)
[2025-03-09 06:59] LABS: Anion Gap 8.0 (3-11); Blood Urea Nitrogen 25.0 mg/dl (6-23); Calcium 9.2 mg/dl (8.6-10.3); Carbon Dioxide 26.0 mmol/L (21-32); Chloride 107.0 mmol/L (98-107); Creatinine Clr Calc Pharmacy 93.2 ml/min; Glucose 185.0 mg/dl (70-99(Fasting)); Potassium 4.1 mmol/L (3.5-5.1); Sodium 141.0 mmol/L (136-145)
[2025-03-09] MEDS: LANTUS PER UNIT CHARGE SC SCH (08:40)
[2025-03-09] MEDS: HYDROCODONE/ACETAMOPHEN 5/325MG TAB PO PRN (09:02)
--- NOTE | 2025-03-09 09:18 | Orthopedic Progress Note ---
Date of Service March 09, 2025 Assessment & Plan (1) Back pain: Plan: Today we will initiate physical therapy monitor her progress hopefully discharge home in the next few days. Admission and Anticipated Discharge Date Admission Date: March 07, 2025 Subjective Patient's back pain is markedly improved. Physical Exam Physical Exam: Patient is sitting up at the bedside. She is constricted testing. Results & Data Vital Signs (Past 12 Hours) Vital Signs Temp Pulse Resp BP Pulse Ox O2 Del Method 03/09/25 07:09 36.5 C 63 16 163/71 H 96 Room Air 03/08/25 23:22 36.6 C 65 18 151/74 H 93 Room Air Queries Orthopedic Spine Obesity: Yes (1) Back pain Back pain laterality: unspecified Back pain location: low back pain Chronicity: acute Sciatica presence: unspecified whether sciatica present Qualified Code(s): M54.50 - Low back pain, unspecified
--- NOTE | 2025-03-09 15:53 | Hospitalist Progress Note ---
Date of Service March 09, 2025 Assessment & Plan (1) Back pain: Plan: 59-year-old female with past medical history significant for hypertension, hyperlipidemia, morbid obesity, GERD, osteoarthritis of spine, who recently on March 03 2025 had lumbar spinal decompression surgery and was discharged 03/06 comes back 03/07 with severe back pain and weakness in the right leg. Patient states prior to discharge she was walking okay. At home also 03/07 morning she walked fine. But later in the day she noticed severe pain in the back and also her right leg was giving away which prompted her to come to the ER. Back pain Recent lumbar decompression surgery Pain controlled, lumbar CT reviewed expected post surgical changes. s/p Decadron Further management as per orthopedics Hypertension On hydralazine, hydrochlorothiazide, lisinopril and metoprolol succinate. continue Will monitor Diabetes Hold metformin Sliding scale Close monitor while on Decadron GERD: Protonix Hyperlipidemia: On fenofibrate and statin DVT prophylaxis: SCDs, chemo dvt px w/ clearance from ortho spine Admission and Anticipated Discharge Date Admission Date: March 07, 2025 Subjective Patient was seen and examined at bedside. Patient was lying in bed, on room air, NAD, resting comfortably. Patient reports improving back pain. Patient denies any fever/cough/sore throat/chest pain/numbness or tingling in the perineum and lower limbs/incontinence of bowel and bladder. Physical Exam Physical Exam: General- Not in distress Head- atraumatic Eyes- EOMI ENT- oropharynx clear Neck- supple, no JVD. Lungs- clear to auscultation no wheezing or crackles Heart- regular rhythm; no murmur, no gallop. Abdomen- normal bowel sounds, soft, nontender, no distension Extremities- no pretibial edema, no erythema seen Neuro- alert, oriented EOMI; no facial palsy; no dysarthria; moves extremities Musculoskeletal Back surgery site in dressing c/d/i Results & Data Results & Data Vital Signs (Past 12 Hours) Vital Signs Temp Pulse Resp BP Pulse Ox O2 Del Method 03/09/25 14:39 37.0 C 66 16 120/56 L 96 Room Air 03/09/25 07:09 36.5 C 63 16 163/71 H 96 Room Air (1) Back pain Back pain laterality: unspecified Back pain location: low back pain Chronicity: acute Sciatica presence: unspecified whether sciatica present Qualified Code(s): M54.50 - Low back pain, unspecified
--- NOTE | 2025-03-10 08:19 | Orthopedic Progress Note ---
Date of Service March 10, 2025 Assessment & Plan (1) Back pain: Plan: Will continue to work on pain control. She is improving. I have ordered occupational therapy. She is a great candidate for rehab upon discharge. DVT prophylaxis in the form of teds and SCDs. Admission and Anticipated Discharge Date Admission Date: March 07, 2025 Ricco Rutherford is here for with postoperative low back and left leg pain. She describes it as spasms. She is struggling with walking and ambulation. It is the same pain pattern as her pain preoperatively. No new complaints. Review of Systems Review of Systems: All systems reviewed & are unremarkable except as noted in HPI & below Physical Exam Physical Exam: She is sitting up on the edge of the bed eating breakfast in no acute distress alert and oriented x 3 Lumbar incision looks great and no evidence of erythema, purulence, drainage or significant edema strength unchanged bilateral lower extremities Nontender to palpation over the greater trochanter regions bilaterally Results & Data Vital Signs (Past 12 Hours) Vital Signs Temp Pulse Resp BP Pulse Ox O2 Del Method 03/10/25 08:06 175/87 H 03/10/25 07:09 36.4 C L 71 16 98/63 L 96 Room Air 03/09/25 21:53 36.9 C 65 18 156/73 H 94 Room Air Queries Orthopedic Spine Obesity: Yes (1) Back pain Back pain laterality: unspecified Back pain location: low back pain Chronicity: acute Sciatica presence: unspecified whether sciatica present Qualified Code(s): M54.50 - Low back pain, unspecified
[2025-03-10] MEDS: dexAMETHasone 8 MG in SYRINGE 0 ML IV SCH (09:57)
--- NOTE | 2025-03-10 12:40 | Pharmacy Report ---
Pharmacy Glycemic Short Note 2 - Date of Service March 10, 2025 - Glycemic Short BSG Results (Last 24 hours): 03/09/25 03/09/25 03/10/25 16:56 21:05 07:35 POC Glucose 109 H 120 H 100 H 03/10/25 11:20 POC Glucose 114 H OUTPATIENT ANTIDIABETIC REGIMEN: * metformin 1000mg PO BID HbA1c: 6.9% on 02/10/25 ASSESSMENT: 03/10 * Patient received total of 20 units of insulin yesterday, of which 8 units were basal insulin * Fasting BSG 100 mg/dL - hold basal and resume outpatient metformin this morning * Steroids being ordered now later this AM - will reevaluate AM fasting tomorrow to determine if basal should be resumed with ongoing steroids 03/08 * Bia is a 59 year old female who was admitted 03/07 with severe back pain and weakness in the right leg s/p lumbar spinal decompression surgery on 03/03. She was placed on dexamethasone and pharmacy was consulted for glycemic management. * BSG at HS last evening was 158mg/dL. Lantus 10 units SQ x 1 was ordered and a weight based bolus insulin regimen with a stress between 1 and 2 was started. * Fasting BSG was 173mg/dL this morning. An additional 10 units of SQ Lantus x 1 was ordered and CR was tightened starting at lunch time. * She continues on dexamethasone 8mg iv q 8 hours through today, so expect insulin needs to start to decline as steroids wear off. PLAN FOR INPATIENT GLYCEMIC CONTROL: * Resumed outpatient metformin 1 gm bidm * Basal insulin * Lantus - hold * Bolus insulin * NovoLog per scale ACHS or Q6hrs while NPO * Goal Range: Low 120 mg/dL - High 150 mg/dL * Correction Factor: 30 mg/dL/unit * Nutritional / Prandial insulin per carb ratio of 1 unit per -- grams CHO consumed
--- NOTE | 2025-03-10 14:53 | Hospitalist Progress Note ---
Date of Service March 10, 2025 Assessment & Plan (1) Back pain: Plan: 59-year-old female with past medical history significant for hypertension, hyperlipidemia, morbid obesity, GERD, osteoarthritis of spine, who recently on March 03 2025 had lumbar spinal decompression surgery and was discharged 03/06 comes back 03/07 with severe back pain and weakness in the right leg. Patient states prior to discharge she was walking okay. At home also 03/07 morning she walked fine. But later in the day she noticed severe pain in the back and also her right leg was giving away which prompted her to come to the ER. Back pain Recent lumbar decompression surgery Pain controlled, lumbar CT reviewed expected post surgical changes. s/p Decadron Further management as per orthopedics Hypertension On hydralazine, hydrochlorothiazide, lisinopril and metoprolol succinate. continue Will monitor Diabetes Hold metformin Sliding scale Close monitor while on Decadron GERD: Protonix Hyperlipidemia: On fenofibrate and statin DVT prophylaxis: SCDs, chemo dvt px w/ clearance from ortho spine Admission and Anticipated Discharge Date Admission Date: March 07, 2025 Subjective Patient was seen and examined at bedside. Patient was sitting up in chair, on room air, NAD, resting comfortably. Patient reports improving back pain but still difficulty managing pain during activity. Patient denies any fever/cough/sore throat/chest pain/numbness or tingling in the perineum and lower limbs/incontinence of bowel and bladder. Physical Exam Physical Exam: General- Not in distress Head- atraumatic Eyes- EOMI ENT- oropharynx clear Neck- supple, no JVD. Lungs- clear to auscultation no wheezing or crackles Heart- regular rhythm; no murmur, no gallop. Abdomen- normal bowel sounds, soft, nontender, no distension Extremities- no pretibial edema, no erythema seen Neuro- alert, oriented EOMI; no facial palsy; no dysarthria; moves extremities Musculoskeletal Back surgery site healing healthy, no redness/drainage. Results & Data Results & Data Vital Signs (Past 12 Hours) Vital Signs Temp Pulse Resp BP Pulse Ox O2 Del Method 03/10/25 08:06 175/87 H 03/10/25 07:09 36.4 C L 71 16 98/63 L 96 Room Air (1) Back pain Back pain laterality: unspecified Back pain location: low back pain Chronicity: acute Sciatica presence: unspecified whether sciatica present Qualified Code(s): M54.50 - Low back pain, unspecified
[2025-03-10 21:07] VITALS: TEMP 97.7
[2025-03-11 07:40] VITALS: RESP 15; O2SAT 100
--- NOTE | 2025-03-11 10:17 | Hospitalist Progress Note ---
Date of Service March 11, 2025 Assessment & Plan (1) Back pain: Plan: 59-year-old female with past medical history significant for hypertension, hyperlipidemia, morbid obesity, GERD, osteoarthritis of spine, who recently on March 03 2025 had lumbar spinal decompression surgery and was discharged 03/06 comes back 03/07 with severe back pain and weakness in the right leg. Patient states prior to discharge she was walking okay. At home also 03/07 morning she walked fine. But later in the day she noticed severe pain in the back and also her right leg was giving away which prompted her to come to the ER. Back pain Recent lumbar decompression surgery Pain controlled, lumbar CT reviewed expected post surgical changes. s/p Decadron Further management as per orthopedics Hypertension On hydralazine, hydrochlorothiazide, lisinopril and metoprolol succinate. continue Will monitor Diabetes Hold metformin Sliding scale Close monitor while on Decadron GERD: Protonix Hyperlipidemia: On fenofibrate and statin DVT prophylaxis: SCDs, chemo dvt px w/ clearance from ortho spine Admission and Anticipated Discharge Date Admission Date: March 07, 2025 Subjective Patient was seen and examined at bedside. Patient was sitting up in bed, on room air, NAD, resting comfortably. Patient reports improving back pain gradually. Patient denies any fever/cough/sore throat/chest pain/numbness or tingling in the perineum and lower limbs/incontinence of bowel and bladder. Physical Exam Physical Exam: General- Not in distress Head- atraumatic Eyes- EOMI ENT- oropharynx clear Neck- supple, no JVD. Lungs- clear to auscultation no wheezing or crackles Heart- regular rhythm; no murmur, no gallop. Abdomen- normal bowel sounds, soft, nontender, no distension Extremities- no pretibial edema, no erythema seen Neuro- alert, oriented EOMI; no facial palsy; no dysarthria; moves extremities Musculoskeletal Back surgery site healing healthy, no redness/drainage. Results & Data Results & Data Vital Signs (Past 12 Hours) Vital Signs Temp Pulse Resp BP BP Pulse Ox O2 Del Method 03/11/25 07:38 36.5 C 58 L 15 165/84 H 100 Room Air 03/10/25 22:40 58 L 149/77 H 94 Room Air (1) Back pain Back pain laterality: unspecified Back pain location: low back pain Chronicity: acute Sciatica presence: unspecified whether sciatica present Qualified Code(s): M54.50 - Low back pain, unspecified
--- NOTE | 2025-03-11 10:17 | Discharge Summary ---
Date of Service March 11, 2025 Admission HPI Per Admitting Provider This is a 59-year-old female well-known to me the presents the emergency room yesterday after having just been discharged. She states she would return home after surgery was doing well until Saturday she began experiencing severe back pain radiating into the left flank and down her left leg. This morning she is somewhat improved after night of rest and some steroids. She denies any numbness or tingling in her legs or leg pain at this time. She describes back pain with movement in the bed only. Principal Diagnosis Multilevel lumbar spondylosis with radiculopathy Discharge Data Allergies Allergy/AdvReac Type Severity Reaction Status Date / Time latex Allergy Intermediate red, Verified 03/03/25 07:03 burning rash oxycodone [From Percocet] Allergy Intermediate severe Verified 03/03/25 07:03 vomiting Sulfa (Sulfonamide Allergy Intermediate rash/vomiti Verified 03/03/25 07:03 Antibiotics) ng montelukast AdvReac Severe "changed Verified 03/03/25 07:03 my personality" duloxetine AdvReac Unknown Gastrointestinal Verified 03/03/25 07:03 Upset lilacs Allergy Severe Anaphylaxis Uncoded 03/03/25 07:03 Consultations 03/07/25 19:54 ED Decision to Admit Stat 03/07/25 23:32 Consult Internal Medicine Routine Ordered Studies 03/08/25 10:17 CT lumbar spine wo con Urgent Hospital Course (1) S/P spinal surgery: Patient was admitted with postoperative back pain. With pain management and physical therapy she improved. Leg pain improving ambulation tolerable. Pain controlled. Subsequently discharged to long-term facility. Discharge orders instructions on the chart for further review. Total Time Total Time Spent Total Time Spent (In Minutes): 20 minutes Discharge Plan Discharge Items Patient Disposition: Transfer Halfway Fac Reason For Visit: POST OP BACK PAIN Discharge Diagnosis: Postoperative back pain Condition on Discharge: Fair Activity: As commented below Non-emergency contact: Primary Care Provider Call non-emergency contact if: you have any medication questions Follow-up/Referrals: Kareen San MD [Primary Care Provider] - Diet: Regular Addtl Attending Provider Instructions: ACTIVITY RECOMMENDATIONS: SELF CARE INSTRUCTIONS AFTER THORACIC/LUMBAR FUSIONS 1. You may walk to your tolerance. It is good exercise for your legs and back. Expect some back and intermittent leg aches and pains. 2. You may perform "counter-top" level activities (make a sandwich, surinder with a project, etc.). 3. No bending or lifting of more than 10 pounds or back twisting of any nature (roll like a log when turning in bed). 4. You may ride in a car for 20-30 minutes at a time. No driving until after your first visit with your doctor. 5. Frequent changes of position and restricting sitting to 30 minutes at a time will help limit the amount of back spasms and stiffness you may experience. 6. You may discontinue the use of ambulatory aids (cane, crutches, etc.) once your strength and confidence allow. 7. You may grinder set up operator thread the shower and let water strike your incision when you arrive home at least once daily. Do not take a tub bath, sit in a hot tub or go into a swimming pool until after your first recheck in the office. 8. You may resume previous diet. SPECIAL CARE INSTRUCTIONS: VERY IMPORTANT TO READ AND REVIEW A. Your surgical incision has been closed with a cosmetic suture under the skin that will dissolve in about 6 weeks. In 14 days, you can use a pair of clean scissors and cut the suture that is left outside of the skin at the ends of your incision. 1. The small skin tapes can be removed 7 days after surgery if they have not fallen off by that point. 2. You may keep the wound open to air as much as possible to promote healing after post-op day number 5 unless told otherwise by your doctor. 3. If you think the wound looks like it is becoming infected (redness or wo rsening drainage) and/or you are experiencing fever, chill or worsening back pain and muscle spasms, contact the office so that we may evaluate you as soon as possible. B. Complications are uncommon, but please contact us if you have any signs or symptoms of: 1. wound infection (fever higher than 102.5 degrees F, redness, separation of wound, drainage, or increasing pain from the incision) 2. blood clots in legs (pain, swelling, redness and warmth in legs) 3. urinary tract infection (fever higher than 102.5 degrees F, burning upon urination or increased frequency of urination) 4. nerve problems (inability to walk on your toes or heels, numbness, loss of bowel or bladder control) 5. any other symptoms that concern you C. Please call the office at if you have any concerns or questions about your operation or recovery. D. No smoking! Smoking drastically decreases the chance of a solid fusion. E. Do not take any anti-inflammatory medications (Indocin, Advil, Motrin, Aspirin, Naprosyn, etc.) as these may inhibit the chance of a solid fusion. Tylenol is okay to take for pain. MANAGING PAIN AFTER SPINAL SURGERY 1. Narcotic medication is intended for short-term use and will be provided for surgical pain. Surgical pain usually lasts for a period of 4-6 weeks. Narcotic medication includes Percocet, Vicodin, Darvocet, Tylenol #3 or Lortab. 2. Longer-term pain is more appropriately treated with non-narcotic medication such as Tylenol ES. 3. Muscle spasm is not appropriately treated with narcotics. Muscle relaxers such as Soma, Flexeril or Skelaxin can be used along with Tylenol ES. 4. Remember that we all live with some "aches and pains". This is not unusual or uncommon after an injury or as we get older. a. Back pain is expected and may include muscle spasms for 4 to 6 weeks after surgery. The pain should gradually improve. If the pain worsens for no apparent reason, please contact the office. b. Intermittent leg pain may also be experienced and should not be concerned about unless it worsens for no apparent reason. If so, please contact the office. 5. We will provide appropriate medication within the normal guidelines of their prescribed use. We will also be very cautious and aware of potential abuse and extended duration of patients' medication needs. a. Pain medications are for your comfort and to assist with sleep and rest so that the tissue can heal. They are not provided in order to return to normal activity and should not be used through the day. To do so or worsening pain at night can result from ongoing tissue damage and development of tolerance to the prescribed medicine. 6. Please allow 2-3 days to process refills. Prescriptions will not be mailed but must be picked up at the office. FOLLOW UP VISIT: Keep your scheduled follow-up appointment. Any questions, please call the office at . Pending Studies at Discharge: No Stand-Alone Forms: My [facility], Smoking Cessation Skilled Items Patient informed of condition?: Yes DNR: No Discharge Level of Care: Skilled Communicable Disease: No Discharge Prognosis: Improving Lines: None Urinary Catheter: No Medications and DC Order Prescriptions: New hydrocodone-acetaminophen 5-325 mg tablet 1 tab PO Q6H PRN (Reason: pain) Qty: 30 0RF Continued cyclobenzaprine 10 mg Tablet 10 mg PO TID PRN (Reason: Muscle Spasm) atorvastatin 20 mg Tablet 20 mg PO HS metoprolol succinate 50 mg Tablet Extended Release 24 Hr 50 mg PO HS fenofibrate micronized 134 mg Capsule 134 mg PO QAM meclizine 25 mg Tablet 25 mg PO DAILY PRN (Reason: Dizziness) hydrochlorothiazide 25 mg Tablet 25 mg PO QAM lisinopril 40 mg Tablet 40 mg PO QAM naproxen 500 mg Tablet 500 mg PO BID PRN (Reason: Pain) metronidazole [Metrogel] 1 % Gel 1 applic TOPICAL DAILY cetirizine [Zyrtec] 10 mg Tablet 10 mg PO DAILY magnesium 100 mg Tablet 100 mg PO QAM hydralazine 50 mg Tablet 50 mg PO BID cholecalciferol (vitamin D3) [Vitamin D3] 125 mcg (5,000 unit) Tablet 125 mcg PO DAILY metformin 1,000 mg tablet 1,000 mg PO BID pantoprazole 20 mg tablet,delayed release (DR/EC) 20 mg PO DAILY hydrocodone-acetaminophen 5-325 mg tablet 1 tab PO Q6H PRN (Reason: pain) Qty: 30 0RF Rx Instructions: Hydrocodone for severe pain tramadol for moderate pain tramadol 50 mg tablet 50 mg PO Q6H PRN (Reason: pain, moderate) Qty: 30 0RF Discharge Orders: Discharge Order (Routine); Ordered 03/11/25 Ordered By: David Gibbs Admission Data Admit Date/Time: 03/07/25 20:44 Attending Provider: David Gibbs Admit Provider: David Gibbs Primary Care Provider: Kareen San Other Providers: David Gibbs; Aditi Granados; [place]
[2025-03-11 10:43] VITALS: BP 149/77; PULSE 67
== END 2025-03-11 11:47 | DRG 948 ==
LOC: ED 17:35 → 3E 20:44